=== PATIENT | male | born 1940 | race Caucasian/White ===

== ENCOUNTER 2018-09-15 02:18 | Outpatient (CLI) | payer OTHER, SELFPAY ==
[2018-09-15 11:03] LABS: Anion Gap 5.2 mmol/L (3-11); BUN 14 mg/dL (7-18); CO2 28.8 mmol/L (21.0-32.0); CREATININE 0.67 mg/dL (0.70-1.30); Calcium 8.7 mg/dL (8.5-10.1); Chloride 103 mmol/L (98-107); Glucose 112 mg/dL (70-100); Potassium 4.8 mmol/L (3.5-5.1); Sodium 137 mmol/L (136-145)
== END 2018-09-15 02:38 ==
LOC: LBO 02:18 → LOS 08:42
PROVIDERS: PCP Family Medicine; Visit Provider Family Medicine
DX: R73.03 Prediabetes (principal)
CPT/HCPCS: 36415; 80048

== ENCOUNTER 2018-09-30 01:40 | Outpatient (CLI) | payer OTHER, SELFPAY ==
--- NOTE | 2018-09-30 07:30 | MERGE_ITS ---
*[facility]* *[facility]* [address] [place] [address] Date of study: 09/30/2018 Transthoracic Echocardiography M-mode, complete 2D, complete spectral Doppler, and color Doppler *STUDY CONCLUSIONS* Summary: 1. Left ventricle: The cavity size was normal. Wall thickness was increased in a pattern of moderate LVH. Systolic function was hyperdynamic. The estimated ejection fraction was 65-70%. Findings consistent with diastolic dysfunction. Doppler parameters are consistent with high ventricular filling pressure. 2. Aortic valve: There was severe stenosis. There was mild regurgitation. Peak velocity (S): 4.2m/sec. Mean gradient (S): 42.2mm Hg. VTI ratio of LVOT to aortic valve: 0.3. Valve area (VTI): 1cm^2. 3. Mitral valve: There was mild to moderate regurgitation. Pressure half-time: 88ms. Valve area by pressure half-time: 2.5cm^2. 4. Left atrium: The atrium was moderately dilated. 5. Right ventricle: The cavity size was mildly dilated. Systolic function was normal. 6. Right atrium: The atrium was moderately dilated. 7. Atrial septum: No defect or patent foramen ovale was identified. 8. Tricuspid valve: There was moderate regurgitation. 9. Pulmonary arteries: Pulmonary systolic pressure was in the range of 40mm Hg to 50mm Hg. 10. Inferior vena cava: The vessel was patent and normal in size. The respirophasic diameter changes were in the normal range (greater than or equal to 50%), consistent with normal central venous pressure. *PATIENT PRESENTATION* Height: 180.3cm ((71in) ) S/D Pressure: 135 / 74 Weight: 75.8kg ((166.7lb) ) BSA: 1.95m^2 Test start time: 07:35 AM. Test stop time: 08:50 AM. PERFORMING Unknown ORDERING Kwesi Lopez REFERRING Kwesi Lopez PERFORMING [facility] [employer] Dedra Hoppe, RT (R)(CT), [facility] *PROCEDURE DATA* Procedure information: The patient was identified by two identifiers. This study was interpreted by [facility]. Pertinent images and digital data are archived for permanent storage and are available for subsequent review. No prior study was available for comparison. Study status: Routine. Transthoracic echocardiography. M-mode, complete 2D, complete spectral Doppler, and color Doppler. A Transthoracic Echocardiogram was performed. Scanning was performed from the parasternal, apical, subcostal, and suprasternal notch acoustic windows. Images were obtained using an [id number] cardiac ultrasound machine. Image quality was fair. Study completion: The patient tolerated the procedure well. History: PMH: Systolic ejection murmur. Had echo years ago at [facility]. R01.1. *CARDIAC ANATOMY* Left ventricle: The cavity size was normal. Wall thickness was increased in a pattern of moderate LVH. Systolic function was hyperdynamic. The estimated ejection fraction was 65-70%. The tissue Doppler parameters were abnormal. Findings consistent with diastolic dysfunction. Doppler parameters are consistent with high ventricular filling pressure. Aortic valve: Trileaflet; moderately thickened, moderately calcified leaflets. Doppler: There was severe stenosis. There was mild regurgitation. VTI ratio of LVOT to aortic valve: 0.3. Valve area (VTI): 1cm^2. Indexed valve area (VTI): 0.5cm^2/m^2. Peak velocity ratio of LVOT to aortic valve: 0.27. Valve area (Vmax): 0.9cm^2. Indexed valve area (Vmax): 0.5cm^2/m^2. Mean velocity ratio of LVOT to aortic valve: 0.28. Valve area (Vmean): 1cm^2. Indexed valve area (Vmean): 0.5cm^2/m^2. Mean gradient (S): 42.2mm Hg. Peak gradient (S): 71.3mm Hg. Aorta: Aortic root: The aortic root was normal in size. Ascending aorta: The ascending aorta was moderately dilated. Mitral valve: Moderately thickened leaflets anterior and posterior. Doppler: There was no evidence for stenosis. There was mild to moderate regurgitation. Valve area by pressure half-time: 2.5cm^2. Indexed valve area by pressure half-time: 1.3cm^2/m^2. Peak gradient (D): 4.7mm Hg. Left atrium: The atrium was moderately dilated. Atrial septum: No defect or patent foramen ovale was identified. Right ventricle: The cavity size was mildly dilated. Systolic function was normal. Pulmonic valve: Doppler: There was no evidence for stenosis. There was mild to moderate regurgitation. Peak gradient (S): 4.4mm Hg. Tricuspid valve: Doppler: There was moderate regurgitation. Pulmonary artery: Poorly visualized. Pulmonary systolic pressure was in the range of 40mm Hg to 50mm Hg. Right atrium: The atrium was moderately dilated. Pericardium: There was no pericardial effusion. Systemic veins: Inferior vena cava: Well visualized. The vessel was patent and normal in size. The respirophasic diameter changes were in the normal range (greater than or equal to 50%), consistent with normal central venous pressure. Baseline ECG: Bradycardia. Measurements Left ventricle Value Reference LV ID, ED, PLAX 4.8 cm 3.5 - 6.0 LV ID, ES, PLAX 3.0 cm 2.1 - 4.0 LV PW thickness, ED, PLAX 1.3 cm LV end-diastolic volume, 1-p A2C 81 ml LV ejection fraction, 1-p A2C 59 % LV end-diastolic volume, 1-p A4C 115 ml LV ejection fraction, 1-p A4C 64 % LV e', lateral 0.038 m/sec LV E/e', lateral 29 LV e', medial 0.038 m/sec LV E/e', medial 29 LV e', average 0.038 m/sec LV E/e', average 29 Ventricular septum Value Reference IVS thickness, ED, PLAX 1.3 cm LVOT Value Reference LVOT ID, A-P 2.1 cm LVOT area 3.4 cm^2 LVOT peak velocity, S 1.12 m/sec LVOT mean velocity, S 0.88 m/sec LVOT VTI, S 29.4 cm LVOT peak gradient, S 5 mm Hg LVOT mean gradient, S 3.3 mm Hg Stroke volume (SV), LVOT DP 100 ml Stroke index (SV/bsa), LVOT DP 51 ml/m^2 Aortic valve Value Reference Aortic valve peak velocity, S 4.2 m/sec Aortic valve mean velocity, S 3.12 m/sec Aortic valve VTI, S 99.0 cm Aortic mean gradient, S 42.2 mm Hg Aortic peak gradient, S 71.3 mm Hg VTI ratio, LVOT/AV 0.3 Aortic valve area, VTI 1 cm^2 Velocity ratio, peak, LVOT/AV 0.27 Aortic valve area, peak velocity 0.9 cm^2 Velocity ratio, mean, LVOT/AV 0.28 Aortic valve area, mean velocity 1 cm^2 Aortic valve area/bsa, mean velocity 0.5 cm^2/m^2 Aorta Value Reference Aortic root ID, ED 3.9 cm Ascending aorta ID, A-P, S 4.1 cm Left atrium Value Reference LA ID, A-P, ES 5.6 cm LA ID/bsa, A-P (H) 2.8 cm/m^2 <=2.2 LA area, ES, A4C (H) 27.7 cm^2 8.8 - 23.4 LA area, ES, A2C 26 cm^2 LA volume/bsa, ES, 1-p A4C 51 ml/m^2 LA volume, ES, 2-p 95 ml LA volume/bsa, ES, 2-p 48 ml/m^2 LA/aortic root ratio 1.41 Mitral valve Value Reference Mitral E-wave peak velocity 1.08 m/sec Mitral A-wave peak velocity 1.4 m/sec Mitral deceleration time (H) 305 ms 150 - 230 Mitral pressure half-time 88 ms Mitral peak gradient, D 4.7 mm Hg Mitral E/A ratio, peak 0.77 Mitral valve area, PHT, DP 2.5 cm^2 Mitral peak LV-LA gradient, S 144.6 mm Hg Mitral maximal regurg velocity, PISA 6.01 m/sec Mitral regurg VTI, PISA 225.3 cm Pulmonary veins Value Reference Pulmonary vein peak velocity, S 0.38 m/sec Pulmonary vein peak velocity, D 0.45 m/sec Pulmonary vein velocity ratio, peak, 0.84 S/D Tricuspid valve Value Reference Tricuspid regurg peak velocity 3.2 m/sec Tricuspid peak RV-RA gradient 40.4 mm Hg Right atrium Value Reference RA area, ES, A4C (H) 25.5 cm^2 8.3 - 19.5 Pulmonic valve Value Reference Pulmonic peak gradient, S 4.4 mm Hg Legend: (L) and (H) fabiano values outside specified reference range. I have personally reviewed the images and have reviewed and edited the reported findings. Electronically signed by Danny Myles MD 09/30/2018 18:31
== END 2018-09-30 02:00 ==
PROVIDERS: PCP Family Medicine; Visit Provider Family Medicine
DX: R01.1 Cardiac murmur, unspecified (principal); I50.1 Left ventricular failure, unspecified; I08.3 Combined rheumatic disorders of mitral, aortic and tricuspid valves
CPT/HCPCS: 93306

== ENCOUNTER → 2018-10-13 10:16 | Outpatient (BNVA) | payer OTHER, SELFPAY | PROVIDERS: PCP Family Medicine; Visit Provider Student in an Organized Health Care Education/Training Program | DX: I35.0 Nonrheumatic aortic (valve) stenosis (principal) | CPT/HCPCS: 99204; 99214 ==

== ENCOUNTER → 2019-01-19 10:56 | Outpatient (BNVA) | payer OTHER, MEDICARE, SELFPAY | PROVIDERS: PCP Family Medicine; Visit Provider Student in an Organized Health Care Education/Training Program | DX: I35.0 Nonrheumatic aortic (valve) stenosis (principal) | CPT/HCPCS: 99214 ==

== ENCOUNTER 2019-07-13 13:15 | Emergency (ER) | payer OTHER, SELFPAY ==
[2019-07-13 13:27] VITALS: BP 140/82; PULSE 72; RESP 16; TEMP 36.6; O2SAT 97
--- NOTE | 2019-07-13 14:00 | DI.CT_ITS ---
EXAM: CT HEAD WO CLINICAL HISTORY: Fall, struck his head. TECHNIQUE: Imaging Protocol: Axial computed tomography images with coronal and sagittal reformatted images were created and reviewed COMPARISON: HEAD AND CSPINE W/O CONTRAST from 05/05/2011 HEAD AND CSPINE W/O CONTRAST from 05/05/2011 FINDINGS: Ventricles and Extra axial spaces: Normal in size and morphology for the patient's age. Hemorrhage: None. Cerebral parenchyma: Mild atrophy. Midline shift: None. Brainstem/Cerebellum: Normal. Calvarium: Normal. Visualized Paranasal sinuses/Mastoids: Clear. Soft Tisues: Unremarkable. IMPRESSION: No acute abnormality. RADIATION DOSE DELIVERED: DATA REPOSITORY: All CT scans at this facility are submitted to the National Radiology Data Registry (NRDR) Dose Index Registry (DIR) with the [employer] (ACR). RADIATION OPTIMIZATION: All CT scans at this facility use at least one of these dose optimization te chniques: automated exposure control; mA and/or kV adjustment per patient size (includes targeted exa ms where dose is matched to clinical indication); or iterative reconstruction.
[2019-07-13] MEDS: Tetanus & Diphtheria Tox,ADULT 0.5 ML VIAL IM (14:58)
--- NOTE | 2019-07-13 15:40 | W.ED.GENAD ---
Discharge Plan Disposition Patient Disposition: HOME Condition: Stable Discharge Details Chief Complaint: Laceration Clinical Impression: Laceration of scalp Primary Care Provider: Kwesi Lopez ED Provider: Derek Vaca Home Meds and New Rx's Prescriptions: No Action Imodium Multi-Symptom Relief 1 EACH tablet 2 tab PO DAILY RF: 0 Discharge Instructions Instructions: Laceration (ED) Additional Instructions: Keep the area clean and dry. [place] should be removed in 5 days. Please watch for new or worsening symptoms and return to the ER for any concerns Discharge Data Discharge Date/Time-TO BE ENTERED AT DEPARTURE: 07/13/19 15:56 Medical Decision Making 78-year-old gentleman who was working on a trailer, it slipped and he fell striking his head. He is not anticoagulated he denies a global headache. There is no distracting injuries. Will obtain head CT given mechanism and his age. Although given his examination low suspicion for intracranial process. There is no C-spine discomfort, no clear indication for imaging. Will update tetanus, clean and repair the laceration. CT negative. Discussed this with patient and family. He remains neurologically intact. Tetanus updated Patient tolerated approximation of laceration well. Patient with no additional questions or concerns, comfortable with discharge Imaging Data Radiologic Study: Attestation: I personally reviewed and interpreted this imaging study as follows: Imaging: CT Scan Radiologist's impression: Negative per radiology HPI General Mode of arrival: ambulatory. Date/Time Provider Initiated Documentation: 07/13/19 13:16. Limitations to Documentation: no limitations. Information obtained by: patient. HPI Narrative: This is a 78-year-old gentleman with a history of aortic stenosis, prediabetes, migraines, ulcerative colitis, not anticoagulated who reports that about 30 minutes prior to arrival he was hooking up a trailer, the trailer slipped, he fell striking the back of his head on a piece of metal. He denies any loss of consciousness, headache, neck pain, visual changes, chest pain, shortness of breath, nausea, vomiting, incontinence, numbness, tingling, weakness or any other injury. His tetanus status is not up-to-date. Patient significant other reports that she was unable to get the bleeding to stop, felt as though it was rather deep so decided to come to the ER for further evaluation. Patient reports pain 1 out of 10 locally at the laceration. Related Data Home Medications Medication Instructions Recorded Confirmed loperamide-simethicone [Imodium 2 tab PO DAILY 06/07/15 07/13/19 Multi-Symptom Rel Cplt] Allergies Allergy/AdvReac Type Severity Reaction Status Date / Time aspirin Allergy Unknown Unverified 07/13/19 13:34 Sulfa (Sulfonamide AdvReac Intermediate NAUSEA/VOMI Unverified 07/13/19 13:34 Antibiotics) TING Salicylates * AdvReac Mild GI UPSET Unverified 07/13/19 13:34 [Salicylates *RETIRED-10/29/15] General Stated Complaint: Laceration KAYLI: 4 Review of Systems Constitutional Constitutional: Denies headache(s) and Denies weakness Eyes Eyes: Denies change in vision ENT Ears, Nose, Mouth, and Throat: Denies headache(s) and Denies neck pain Cardiovascular Cardiovascular: Denies chest pain and Denies dyspnea Respiratory Respiratory: Denies dyspnea Gastrointestinal Gastrointestinal: Denies abdominal pain, Denies nausea and Denies vomiting Musculoskeletal Musculoskeletal: Denies back pain, Denies neck pain, Denies numbness and Denies tingling Integumentary/Breasts Skin/Breast: Denies rash Neurologic Neurologic: Denies headache(s), Denies numbness, Denies tingling and Denies weakness Hematologic/Lymphatic Hematologic/Lymphatic: Denies easy bruising [facility] Medical History Aortic stenosis (Chronic) Disease of pericardium (Resolved 03/29/07) Unspecified disease of pericardium (Resolved 03/29/07) Surgical History Colonoscopy - MAC (03/26/16) Family History Mother Cancer Father No problems noted. Sister No problems noted. Brother Cancer Sister No problems noted. Sister No problems noted. Brother No problems noted. Brother No problems noted. Son No problems noted. Daughter Diabetes Social History Smoking/Tobacco Use Status: Never Second Hand Exposure: Yes Alcohol Intake: never Drug use: Never Substance use type: does not use Caregiver/Support person: No Household members: spouse Housing: house Communication Needs: None Do you need help understanding health information?: Never Pets and animals: No Sexually active: No Do you think of yourself as: straight/heterosexual Current gender identity: male What is your relationship status?: How often do you talk on the phone with friends or family?: three or more times per week How often do you get together with friends or relatives?: three or more times per week How often do you attend rastafari or methodist services?: decline to answer Do you belong to any clubs or organized social groups?: no Panel score (0-1 are the most socially isolated patients): 2 What type of physical activity do you participate in: other Details: Physical work Mary Beth/Mormon: Yarsanism Special mary beth needs: No Seatbelt use: always Helmet use: No Drive intox or ride w/intox team driver: No Do you feel safe at home: Yes Do you feel safe in your relationship?: Yes Exam Const General: cooperative, healthy appearing, comfortable and no acute distress Orientation: alert, awake and oriented x3 HENMT Head: no palpable skull fracture, normocephalic and laceration (Occiput, 3 cm, no active bleeding. No foreign body. Minimal tenderness) Ears: hearing grossly normal bilaterally, TM's normal bilaterally, TM normal on the right and EAC's normal General nose exam: external nose normal Face and sinus: normal facial exam Mouth: oral mucosae normal and moist mucous membranes Eyes General: appearance normal, both eyes and all related structures Alignment and Position: alignment normal Periorbital: periorbital findings normal Eyelids: eyelids normal Conjunctivae: conjunctivae normal Sclera: sclerae normal Cornea: corneas normal Pupils: PERRL EOM: EOM intact bilaterally Direct ophthalmoscopy: normal light reflex Neck Neck: normal visual inspection, full ROM, trachea midline and supple Resp Effort & Inspection: normal respiratory effort and able to speak in complete sentences Auscultation: clear to auscultation bilaterally Cardio Rate: regular rate Rhythm: regular rhythm Back/Spine/Pelvis Back: No back tenderness Cervical Spine: cervical ROM normal and No cervical spinal tenderness Skin General skin exam: no rashes or lesions noted Neuro General: patient alert, patient awake, patient oriented x3, moves all extremities and no focal motor deficits Cranial Nerves: CN's II-XI intact bilaterally Cognition: normal cognition Speech: speech normal Gait: normal gait Motor: muscle tone normal throughout and strength 5/5 throughout Sensory Exam: no sensory deficits noted Extrem General: normal to inspection and full ROM Psych Appearance: grossly normal Mental Status: mental status grossly normal Course Vital Signs Vital signs: Vital Signs Temperature 36.6 C 07/13/19 13:27 Pulse 72 07/13/19 13:27 Respiratory Rate 16 07/13/19 13:27 Blood Pressure 140/82 07/13/19 13:27 Pulse Oximetry 97 07/13/19 13:27 Temperature 36.6 C 07/13/19 13:27 Temperature Source Temporal Artery Scan 07/13/19 13:27 Pulse 72 07/13/19 13:27 Respiratory Rate 16 07/13/19 13:27 Respiratory Effort Non-Labored 07/13/19 13:32 Blood Pressure 140/82 07/13/19 13:27 Blood Pressure Position Supine 07/13/19 13:27 Pulse Oximetry 97 07/13/19 13:27 Oxygen Delivery Method Room Air 07/13/19 13:27 Oxygen Flow Rate 0 07/13/19 13:27 Pain Level 1 07/13/19 13:27 Procedures Laceration Laceration 1: Site: scalp Size (cm): 3 Description: linear Depth: simple, single layer Pre-repair: wound explored, irrigated extensively and deep structures intact Skin layer closed with: other (Margarita x6)
== END 2019-07-13 15:56 | disposition home or self-care (01) ==
PROVIDERS: Emergency Provider Physician Assistant; PCP Family Medicine
DX: S01.01XA Laceration without foreign body of scalp, initial encounter (principal); W01.198A Fall on same level from slipping, tripping and stumbling with subsequent striking against other object, initial encounter
CPT/HCPCS: 12002; 90471; 99284; 70450; 99281

== ENCOUNTER 2019-07-18 09:07 | Emergency (ER) | payer OTHER, SELFPAY ==
[2019-07-18 09:12] VITALS: BP 131/73; PULSE 74; RESP 16; TEMP 36.5; O2SAT 95
--- NOTE | 2019-07-18 09:20 | W.ED.GENAD ---
Discharge Plan Disposition Patient Disposition: HOME Condition: Stable Discharge Details Chief Complaint: SutureRem Clinical Impression: Encounter for removal of patel Primary Care Provider: Kwesi Lopez ED Provider: Derek Vaca Home Meds and New Rx's Prescriptions: No Action Imodium Multi-Symptom Relief 1 EACH tablet 2 tab PO DAILY RF: 0 Discharge Instructions Additional Instructions: [place] removed without difficulty. Remember to be gentle with that area as the laceration is still not yet completely healed. Please watch for new or worsening symptoms and return to the ER for any concerns Medical Decision Making 78-year-old gentleman presents for staple removal. He is currently asymptomatic. No signs of infection and no wound appears well approximated. I was able to easily remove 7 patel without difficulty. Patient tolerated well. Medical Records Medical records reviewed: Yes I reviewed the patient's medical records. HPI General Mode of arrival: ambulatory. Date/Time Provider Initiated Documentation: 07/18/19 09:07. Limitations to Documentation: no limitations. Information obtained by: patient. HPI Narrative: 78-year-old gentleman seen in the ER on the , actually by me, presents to have patel removed from his scalp. He denies any headache, pain at the site of the laceration, or fevers. No drainage. He has no acute concerns or complaints. Related Data Home Medications Medication Instructions Recorded Confirmed loperamide-simethicone [Imodium 2 tab PO DAILY 06/07/15 07/18/19 Multi-Symptom Rel Cplt] Allergies Allergy/AdvReac Type Severity Reaction Status Date / Time aspirin Allergy Unknown Unverified 07/18/19 09:14 Sulfa (Sulfonamide AdvReac Intermediate NAUSEA/VOMI Unverified 07/18/19 09:14 Antibiotics) TING Salicylates * AdvReac Mild GI UPSET Unverified 07/18/19 09:14 [Salicylates *RETIRED-10/29/15] General Stated Complaint: SutureRem KAYLI: 5 Review of Systems Constitutional Constitutional: Denies fever(s) and Denies headache(s) Eyes Eyes: Denies change in vision ENT Ears, Nose, Mouth, and Throat: Denies headache(s) Gastrointestinal Gastrointestinal: Denies nausea Integumentary/Breasts Skin/Breast: Denies rash Neurologic Neurologic: Denies headache(s) COUNTS INCLUDE [facility] BEDS AT THE [facility] Medical History Aortic stenosis (Chronic) Disease of pericardium (Resolved 03/29/07) Unspecified disease of pericardium (Resolved 03/29/07) Surgical History Colonoscopy - MAC (03/26/16) Family History Mother Cancer Father No problems noted. Sister No problems noted. Brother Cancer Sister No problems noted. Sister No problems noted. Brother No problems noted. Brother No problems noted. Son No problems noted. Daughter Diabetes Social History Smoking/Tobacco Use Status: Never Second Hand Exposure: Yes Alcohol Intake: never Drug use: Never Substance use type: does not use Caregiver/Support person: No Household members: spouse Housing: house Communication Needs: None Do you need help understanding health information?: Never Pets and animals: No Sexually active: No Do you think of yourself as: straight/heterosexual Current gender identity: male What is your relationship status?: How often do you talk on the phone with friends or family?: three or more times per week How often do you get together with friends or relatives?: three or more times per week How often do you attend rastafarian or methodist services?: decline to answer Do you belong to any clubs or organized social groups?: no Panel score (0-1 are the most socially isolated patients): 2 What type of physical activity do you participate in: other Details: Physical work Mary Beth/Scientology: Confucianism Special mary beth needs: No Seatbelt use: always Helmet use: No Drive intox or ride w/intox commercial front load driver: No Do you feel safe at home: Yes Do you feel safe in your relationship?: Yes Exam Const General: cooperative, healthy appearing, comfortable and no acute distress Orientation: alert and awake [facility] Head: normal to inspection, no palpable skull fracture, normocephalic, atraumatic and laceration (Well approximated occiput laceration with 7 patel. No signs of infection) Mouth: moist mucous membranes Eyes Conjunctivae: conjunctivae normal Neck Neck: normal visual inspection, trachea midline and supple Resp Effort & Inspection: normal respiratory effort and able to speak in complete sentences Cardio Rate: regular rate Rhythm: regular rhythm Skin General skin exam: no rashes or lesions noted Neuro General: patient alert, patient awake, moves all extremities and no focal motor deficits Sensory Exam: no sensory deficits noted Psych Appearance: grossly normal Mental Status: mental status grossly normal Course Vital Signs Vital signs: Vital Signs Temperature 36.5 C 07/18/19 09:12 Pulse 74 07/18/19 09:12 Respiratory Rate 16 07/18/19 09:12 Blood Pressure 131/73 07/18/19 09:12 Pulse Oximetry 95 07/18/19 09:12 Temperature 36.5 C 07/18/19 09:12 Temperature Source Skin 07/18/19 09:12 Pulse 74 07/18/19 09:12 Respiratory Rate 16 07/18/19 09:12 Respiratory Effort Non-Labored 07/18/19 09:12 Blood Pressure 131/73 07/18/19 09:12 Blood Pressure Position Sitting 07/18/19 09:12 Pulse Oximetry 95 07/18/19 09:12 Oxygen Delivery Method Room Air 07/18/19 09:12 Oxygen Flow Rate 0 07/18/19 09:12 Pain Level 3 07/18/19 09:12 Comment 07/18/19 09:12
== END 2019-07-18 09:28 | disposition home or self-care (01) ==
LOC: ER 17:33
PROVIDERS: Emergency Provider Physician Assistant; PCP Family Medicine
DX: S01.01XD Laceration without foreign body of scalp, subsequent encounter (principal); W01.198D Fall on same level from slipping, tripping and stumbling with subsequent striking against other object, subsequent encounter; Z48.02 Encounter for removal of sutures

== ENCOUNTER 2020-06-04 10:05 | Day surgery (SDC) | payer MEDICARE, SELFPAY ==
[2020-06-04 10:36] VITALS: BP 145/80; PULSE 71; RESP 18; TEMP 36.5; O2SAT 98
[2020-06-04] MEDS: Tropicam./Phenyleph. (1/2.5%) 5 ML BTL OS ×3 (10:59→11:09)
[2020-06-04] MEDS: Balanced Salt Soln.-PLUS 500 ML BAG (12:00)
[2020-06-04] MEDS: Lidocaine 2% Jelly 6 ML SYR (12:01)
[2020-06-04] MEDS: Lidocaine 1% Pres-Free 5 ML VIAL (12:01)
[2020-06-04] MEDS: Duovisc Viscoelastic System EACH 1 EACH (12:01)
[2020-06-04] MEDS: Tetracaine 0.5% 4 ML BTL OS (12:03)
[2020-06-04] MEDS: Povidone-Iodine Ophth 30 ML BTL (12:03)
[2020-06-04] MEDS: Trypan Blue 0.06% 0.5 ML SYR (12:04)
--- NOTE | 2020-06-04 12:28 | W.PM.DSUDISC ---
Discharge Plan Disposition Patient Disposition: HOME Condition: Good Discharge Details Attending Provider: Dilan Morrissey Primary Care Provider: Nataly Espinosa Home Meds and New Rx's Prescriptions: No Action Imodium Multi-Symptom Relief 1 EACH tablet 2 tab PO DAILY RF: 0 Vitamin C 1,000 mg Tablet Extended Release 1,000 mg PO DAILY RF: 0 ginkgo biloba [Ginkoba] 40 mg Tablet 120 mg PO DAILY RF: 0 Discharge Instructions Stand Alone Forms: Post-op Topical Cataract Discharge Orders Discharge Orders: Discharge Order (Routine); Ordered 06/04/20 Ordered By: Dilan Morrissey DS: Diagnosis Discharge Diagnosis (1) Nuclear sclerotic cataract of left eye: Status: Resolved (2) Posterior subcapsular age-related cataract of left eye: Status: Resolved
--- NOTE | 2020-06-04 12:28 | W.PM.OP ---
Date of service: 06/04/20 Time of Service: 12:29 Operative Note Operative Note DATE OF PROCEDURE: 06/04/20 PRE-OP DIAGNOSIS: Nuclear/posterior cataract, left eye Poorly dilating pupil, left eye Poor red reflex, left eye PROCEDURE: Cataract extraction using phacoemulsification with intraocular lens implant, left eye, with pupillary dilation using Malyugin Ring and capsular staining using Vision Blue SURGEON: Dilan Morrissey ANESTHESIA: MAC (with sub-tenon's local infiltration) ESTIMATED BLOOD LOSS: 0 PATHOLOGY: none sent COMPLICATIONS: None Patient was transported to: same day Patient's condition: stable Implants: Anthony and Anthony / [employer] Tecnis [id number] Indications: Progressive decreased vision due to cataract, left eye Procedure Description: CATARACT SURGERY OPERATIVE REPORT PREOPERATIVE DIAGNOSIS: 1. Nuclear/posterior subcapsular cataract, left eye 2. Poorly dilating pupil, left eye 3. Poor red reflex, left eye POSTOPERATIVE DIAGNOSIS: Same OPERATION: 1. Cataract extraction using phacoemulsification with posterior chamber intraocular lens implant, left eye. 2. Pupillary dilation and iris stabilization using Malyugin Ring 3. Capsular staining with VIsion Blue IOL: IOL Cut Out Stitcher/Model: Anthony & Anthony / HALLIE Tecnis ZCB00 IOL Power: + 21.5 diopters IOL Serial Number: [id number] Optic Diameter: 6.0mm Haptic/Overall Diameter: 13.0mm PHACO INFO: Justin Centurion Vision System with OZil and Active Fluidics Cumulative Dispersed Energy (CDE): 13.49 seconds SURGEON: Dilan Morrissey MD, SOCO ANESTHESIA: Monitored Anesthesia Care (MAC), with local sub-tenon's anesthetic infiltration COMPLICATIONS: None SPECIMENS: None INDICATIONS FOR PROCEDURE: The patient is a 79-year-old gentleman with history of diminished visual acuity in the left eye. He is noted to have a dense posterior subcapsular cataract with visual acuity of 24. The option of cataract surgery was offered to the patient and he wished to proceed. PROCEDURE: The correct surgical eye was identified and marked as the left eye and the pupil was dilated in the preoperative area using mydriatics, cycloplegics, and NSAIDS (except in aspirin allergic patients). The dilated pupil size was 4.5 mm. No oral sedation was given.. The patient was brought to the operating room where cardiopulmonary monitoring was instituted and surgical time-out was performed, confirming the correct operative eye and IOL power. Topical anesthesia was administered and ophthalmic povidone-iodine 5% was instilled into the conjunctival fornices. Lidocaine gel was applied to the cornea and the william-ocular area was prepped with Betadine 10% solution and draped in the usual sterile fashion for intraocular surgery, including an aperture drape. A Tegaderm transparent film dressing was cut in half and used to cover the lashes and lid margins. Care was taken to sequester the lashes and lid margins under the Tegaderm dressing. A lid speculum was placed between the lids of the operative eye and the Kalani-Shira operating microscope was maneuvered into position. Shima scissors were then used to make a conjunctival buttonhole approximately 6mm posterior to the limbus in the inferonasal quadrant. Blunt dissection was carried out to expose bare sclera, and a blunt-tipped sub-tenon?s anesthesia cannula was introduced and passed posteriorly along the globe where non-preserved plain lidocaine was injected into posterior sub-Tenon?s space. A sideport knife was used to make a paracentesis port superiorly/superiortemporally. Intraocular phenylephrine/lidocaine was injected into the anterior chamber. Air was then injected into anterior chamber, followed by Vision Blue, which was painted over the anterior capsule and then irrigated out with BSS. The anterior chamber was then filled with viscoelastic. A 2.4mm keratome knife was used to create a half-thickness groove at the limbus and then to construct a three-plane near-clear corneal tunnel extending 2.0mm into clear cornea temporally. A 7.0 mm Malyugin Ring was then inserted into the pupillary space and engaged with the Kuglen hook. A flap was raised on the anterior capsule and capsulorhexis forceps were used to complete a continuous curvilinear capsulorhexis of 5.0 mm. Balanced salt solution was then used to perform cortical cleaving hydrodissection and nuclear hydrodelineation until the lens could be freely rotated within the capsular bag. The lens nucleus was then disassembled and removed within the capsular bag and iris plane using phacoemulsification. Residual cortical material was removed using the 45-degree angled silicone I/A tip with 0.3mm port. The posterior capsule was carefully polished to remove as much residual lens epithelial cells as safely possible. There was some residual posterior subcapsular plaque, mostly inferior temporally, which could not be safe. The capsular bag was then inflated and the anterior chamber deepened with viscoelastic. The lens implant described above was inserted into the capsular bag using the HALLIE [place] Injector. A Kuglen hook was used to dial the IOL into position. The Malyugin Ring was removed in the reverse order of its insertion. Residual viscoelastic was then removed first from posterior to the IOL, then from the anterior chamber using the I/A handpiece. The lens implant was noted to center nicely within the capsular bag. The incisions were stromally hydrated, and the anterior chamber was reformed using BSS. Then 0.5cc of moxifloxacin 1.0mg/ml were injected into the capsular bag and anterior chamber. The incisions were checked with a Weck spear and found to be secure. Several drops of ophthalmic povidone-iodine 5% were then applied to the eye followed by two drops of Imprimis combination prednisolone/moxifloxacin/nepafenac solution. The drapes were removed and a clear plastic protective eye shield was placed over the eye. The patient was then returned to Same Day Surgery in stable condition.
== END 2020-06-04 12:45 | disposition home or self-care (01) ==
PROVIDERS: PCP Nurse Practitioner; Visit Provider Ophthalmology
PROC: (CPT 66982; principal; 2020-06-04 13:30)
DX: H25.12 Age-related nuclear cataract, left eye (principal); H25.042 Posterior subcapsular polar age-related cataract, left eye; H57.09 Other anomalies of pupillary function; H35.89 Other specified retinal disorders
CPT/HCPCS: 66982; V2632

== ENCOUNTER 2020-06-18 07:22 | Day surgery (SDC) | payer MEDICARE, SELFPAY ==
[2020-06-18 07:30] VITALS: BP 141/91; PULSE 73; RESP 18; TEMP 36.2; O2SAT 97
[2020-06-18] MEDS: Tropicam./Phenyleph. (1/2.5%) 5 ML BTL OD ×3 (07:48→08:02)
[2020-06-18] MEDS: Tetracaine 0.5% 4 ML BTL OD (08:56)
[2020-06-18] MEDS: Lidocaine 2% Jelly 6 ML SYR (08:57)
[2020-06-18] MEDS: Povidone-Iodine Ophth 30 ML BTL (08:57)
[2020-06-18] MEDS: Lidocaine 1% Pres-Free 5 ML VIAL (09:04)
[2020-06-18] MEDS: Balanced Salt Soln.-PLUS 500 ML BAG (09:06)
[2020-06-18] MEDS: Duovisc Viscoelastic System EACH 1 EACH (09:07)
--- NOTE | 2020-06-18 09:26 | W.PM.DSUDISC ---
Discharge Plan Disposition Patient Disposition: HOME Condition: Good Discharge Details Attending Provider: Dilan Morrissey Primary Care Provider: Nataly Espinosa Home Meds and New Rx's Prescriptions: No Action Imodium Multi-Symptom Relief 1 EACH tablet 2 tab PO DAILY RF: 0 Vitamin C 1,000 mg Tablet Extended Release 1,000 mg PO DAILY RF: 0 ginkgo biloba [Ginkoba] 40 mg Tablet 120 mg PO DAILY RF: 0 Discharge Instructions Stand Alone Forms: Post-op Topical Cataract, Basia Sawyer (DSU) Discharge Orders Discharge Orders: Discharge Order (Routine); Ordered 06/18/20 Ordered By: Dilan Morrissey DS: Diagnosis Discharge Diagnosis (1) Cortical cataract of right eye: Status: Resolved (2) Nuclear sclerotic cataract of right eye: Status: Resolved
--- NOTE | 2020-06-18 09:27 | W.PM.OP ---
Date of service: 06/18/20 Time of Service: 09:27 Operative Note Operative Note DATE OF PROCEDURE: 06/18/20 PRE-OP DIAGNOSIS: Nuclear/cortical cataract, right eye POST-OP DIAGNOSIS: same PROCEDURE: Cataract extraction using phacoemulsification with intraocular lens implant, right eye SURGEON: Dilan Morrissey Refer to Anesthesia Record ESTIMATED BLOOD LOSS: 0 PATHOLOGY: none sent COMPLICATIONS: None Patient was transported to: same day Patient's condition: stable Implants: Anthony and Anthony Vision / [employer] Optics Tecnis ZCB00 intraocular lens Indications: Progressive decreased vision due to cataract, right eye Procedure Description: CATARACT SURGERY OPERATIVE REPORT PREOPERATIVE DIAGNOSIS: Nuclear/cortical cataract, right eye POSTOPERATIVE DIAGNOSIS: Same OPERATION: Cataract extraction using phacoemulsification with posterior chamber intraocular lens implant, right eye. IOL: IOL Vice President Of Talent Acquisition/Model: J&J Vision / HALLIE Tecnis ZCB00 IOL Power: + 22.0 diopters IOL Serial Number: [id number] Optic Diameter: 6.0mm Haptic/Overall Diameter: 13.0mm PHACO INFO: Justin TabSysurion Vision System with OZil and Active Fluidics Cumulative Dispersed Energy (CDE): 11.65 seconds SURGEON: Dilan Morrissey MD, SOCO ANESTHESIA: Monitored Anesthesia Care (MAC), with local sub-tenon's anesthetic infiltration COMPLICATIONS: None SPECIMENS: None INDICATIONS FOR PROCEDURE: The patient is a 79-year-old gentleman with history of diminished visual acuity in both eyes secondary to the development of bilateral cataracts. He has already undergone cataract surgery in the left eye and is doing well postoperatively. He now presents for cataract surgery in the right eye. PROCEDURE: The correct surgical eye was identified and marked as the right eye and the pupil was dilated in the preoperative area using mydriatics and cycloplegics. The dilated pupil size was 6.0 mm. Oral sedation was administered in the form of an Imprimis MKO Melt (midazolam 3mg/ketamine 25mg/ondansetron 2mg). The patient was brought to the operating room where cardiopulmonary monitoring was instituted and surgical time-out was performed, confirming the correct operative eye and IOL power. Topical anesthesia was administered and ophthalmic povidone-iodine 5% was instilled into the conjunctival fornices. Lidocaine gel was applied to the cornea and the william-ocular area was prepped with Betadine 10% solution and draped in the usual sterile fashion for intraocular surgery, including an aperture drape. A Tegaderm transparent film dressing was cut in half and used to cover the lashes and lid margins. Care was taken to sequester the lashes and lid margins under the Tegaderm dressing. A lid speculum was placed between the lids of the operative eye and the Kalani-Shira operating microscope was maneuvered into position. Shima scissors were then used to make a conjunctival buttonhole approximately 6mm posterior to the limbus in the inferonasal quadrant. Blunt dissection was carried out to expose bare sclera, and a blunt-tipped sub-tenon?s anesthesia cannula was introduced and passed posteriorly along the globe where non-preserved plain lidocaine was injected into posterior sub-Tenon?s space. A sideport knife was used to make a paracentesis port inferiortemporally. Intraocular phenylephrine/lidocaine was injected into the anterior chamber. The anterior chamber was then filled with viscoelastic. A 2.4mm keratome knife was used to create a half-thickness groove at the limbus and then to construct a three-plane near-clear corneal tunnel extending 2.0mm into clear cornea in the superiortemporal position. . A flap was raised on the anterior capsule and capsulorhexis forceps were used to complete a continuous curvilinear capsulorhexis of 5.5 mm. Balanced salt solution was then used to perform cortical cleaving hydrodissection and nuclear hydrodelineation until the lens could be freely rotated within the capsular bag. The lens nucleus was then disassembled and removed within the capsular bag and iris plane using phacoemulsification. Residual cortical material was removed using the I/A handpiece. The posterior capsule was carefully polished to remove as much residual lens epithelial cells as safely possible. The capsular bag was then inflated and the anterior chamber deepened with viscoelastic. The lens implant described above was inserted into the capsular bag using the HALLIE [place] Injector. A Kuglen hook was used to dial the IOL into position. Residual viscoelastic was then removed first from posterior to the IOL, then from the anterior chamber using the I/A handpiece. The lens implant was noted to center nicely within the capsular bag. The incisions were stromally hydrated, and the anterior chamber was reformed using BSS. Then 0.5cc of moxifloxacin 1.0mg/ml were injected into the capsular bag and anterior chamber. The incisions were checked with a Weck spear and found to be secure. Several drops of ophthalmic povidone-iodine 5% were then applied to the eye followed by two drops of Imprimis combination prednisolone/moxifloxacin/nepafenac solution. The drapes were removed and a clear plastic protective eye shield was placed over the eye. The patient was then returned to Same Day Surgery in stable condition.
== END 2020-06-18 09:38 | disposition home or self-care (01) ==
PROVIDERS: PCP Nurse Practitioner; Visit Provider Ophthalmology
PROC: (CPT 66984; principal; 2020-06-18 09:30)
DX: H25.011 Cortical age-related cataract, right eye (principal); H25.11 Age-related nuclear cataract, right eye; Z96.1 Presence of intraocular lens; Z98.42 Cataract extraction status, left eye
CPT/HCPCS: 66984; V2632

== ENCOUNTER 2020-09-13 02:08 | Outpatient (CLI) | payer MEDICARE, SELFPAY ==
[2020-09-13 12:54] LABS: Calculated LDL 69 mg/dL (<100); Cholesterol 130 mg/dL (<200); HDL Cholesterol 43 mg/dL (40-60); Triglyceride 90 mg/dL (<150)
[2020-09-13 13:27] LABS: Hemoglobin A1C 6.3 % (<5.7)
== END 2020-09-13 02:09 | disposition home or self-care (01) ==
PROVIDERS: PCP Nurse Practitioner; Visit Provider Nurse Practitioner
DX: R73.03 Prediabetes (principal); I35.0 Nonrheumatic aortic (valve) stenosis
CPT/HCPCS: 36415; 80061; 83036

== ENCOUNTER 2023-12-16 03:16 | Outpatient (CLI) | payer MEDICARE, SELFPAY ==
[2023-12-16 12:33] LABS: Hemoglobin A1C 6.5 % (<5.7)
[2023-12-16 12:35] LABS: Anion Gap 4.4 mmol/L (3-11); BUN 20 mg/dL (7-18); CO2 30.6 mmol/L (21.0-32.0); CREATININE 0.9 mg/dL (0.70-1.30); Calcium 8.8 mg/dL (8.5-10.1); Chloride 104 mmol/L (98-107); Estimated GFR 85.27 (mL/min/1.73m2); Glucose 106 mg/dL (74-106); Potassium 3.9 mmol/L (3.5-5.1); Sodium 139 mmol/L (136-145)
== END 2023-12-16 03:17 | disposition home or self-care (01) ==
LOC: LOS 03:16
PROVIDERS: PCP Nurse Practitioner Family; Visit Provider Nurse Practitioner Family
DX: R73.03 Prediabetes (principal); K51.80 Other ulcerative colitis without complications; Z00.00 Encounter for general adult medical examination without abnormal findings
CPT/HCPCS: 36415; 80048; 83036

== ENCOUNTER 2024-10-19 21:47 | Emergency (ER) | payer MEDICARE, SELFPAY ==
[2024-10-19 21:49] VITALS: BP 149/114; PULSE 92; RESP 20; TEMP 36.4; O2SAT 94
[2024-10-19] MEDS: Ondansetron 4 MG/2 ML VIAL (21:57)
--- NOTE | 2024-10-19 22:11 | ED.GENADUL_ITS ---
Discharge Plan Disposition Patient Disposition: Home Discharge Details Clinical Impression: Acute anterior epistaxis Primary Care Provider: Rosita Rodriguez ED Provider: Yakelin Ball Home Meds and New Rx's Prescriptions: New cephalexin 500 mg capsule 500 mg PO BID 2 Days Qty: 4 0RF No Action triamcinolone acetonide 0.1 % cream 1 applic topical DAILY Qty: 80 0RF Rx Instructions: nightly for 2 weeks and then as needed mometasone 50 mcg/actuation spray,non-aerosol 2 spray intranasal DAILY Qty: 17 2RF Rx Instructions: administer into each nostril mupirocin 2 % ointment 1 applic topical TID Qty: 22 0RF loperamide-simethicone [Imodium Multi-Symptom Relief] 1 EACH tablet 2 tab PO DAILY Vitamin C 1,000 mg Tablet Extended Release 1,000 mg PO DAILY ginkgo biloba [Ginkoba] 40 mg Tablet 120 mg PO DAILY Discharge Instructions Instructions: Nosebleeds ED Additional Instructions: * A Rhino Rocket has been placed into the right nare. Please keep monitoring the balloon, it should be full like I demonstrated to you and if it needs to you can add a little bit of air using the syringe provided * Use the Afrin given to you 2 sprays in the left nostril twice daily for the next 3 days * Start the antibiotic prescribed twice daily for the next 3 days this is to prevent infection from developing since you are keeping the Rhino Rocket in place, * An urgent follow-up appointment has been sent to ENT clinic. Ideally they will see you in clinic on Thursday afternoon for removal of the Rhino Rocket. If for some reason you cannot be seen by ENT clinic, then return to the emergency department on Thursday and we can remove the Rhino Rocket here. * Return to the emergency department if you have excessive bleeding out of the left nostril, bleeding down the back of your throat or any issues with the Rhino Rocket. You can take Tylenol as needed for pain or apply ice pack to the nose to help with the pressure or discomfort HPI General Date/Time Provider Initiated Documentation: 10/19/24 21:58 . Limitations to Documentation: no limitations . Information obtained by: patient and EMS . HPI Narrative: 84-year-old gentleman with past medical history of aortic stenosis, presents via EMS for evaluation of nosebleed. He reports that symptoms started just prior to arrival, he reports that he was really hot in his house but otherwise denies prior nosebleeds or any trauma. States that he did not put anything in his nose. He reports significant amount of bleeding coming out of the right side of his nose with clots. EMS reports that they held pressure for quite some time and could not get it to stop, they held pressure during the entire transport. They used Afrin without any resolution. Patient denies any aspirin or other blood thinner use. Related Data Home Medications ?Medication ?Instructions ?Recorded ?Confirmed loperamide 2 mg-simethicone 125 mg 2 tab PO DAILY 02/08/1710/19/24 tablet (Imodium Multi-Symptom Relief) ascorbic acid (vitamin C) 1,000 mg 1,000 mg PO DAILY 0 06/01/20 10/19/24 tablet,extended release (Vitamin C ER) ginkgo biloba 40 mg tablet 120 mg PO DAILY 06/01/20 mupirocin 2 % topical ointment 1 applic topical TID #2 2 grams 11/19/20 10/19/24 mometasone 50 mcg/actuation nasal 2 spray intranasal D AILY #17 grams 04/28/23 10/19/24 spray triamcinolone acetonide 0.1 % 1 applic topical DAILY # 80 grams 04/28/23 10/19/24 topical cream cephalexin 500 mg capsule 500 mg PO BID 2 days #4 caps 10/19/24 Previous Rx's ?Medication ?Instructions ?Recorded mupirocin 2 % topical ointment 1 applic topical TID #2 2 grams 11/19/20 mometasone 50 mcg/actuation nasal 2 spray intranasal D AILY #17 grams 04/28/23 spray triamcinolone acetonide 0.1 % 1 applic topical DAILY # 80 grams 04/28/23 topical cream cephalexin 500 mg capsule 500 mg PO BID 2 days #4 caps 10/19/24 Allergies Allergy/AdvReac Type Severity Reaction Status Date / Time aspirin Allergy Unknown Unknown Verified 10/19/24 21:58 Sulfa (Sulfonamide AdvReac Intermediate NAUSEA/VOMI Verified 10/19/24 21:58 Antibiotics) TING Salicylates * (Salicylates AdvReac Mild GI UPSET Verified 10/19/24 21:58 *RETIRED-10/29/15) General Stated Complaint: Epistaxis KAYLI: 3 Exam Narrative Exam Narrative: Review of Systems: All systems reviewed & are unremarkable except as noted in HPI and below Well-developed, no acute distress NCAT PERRL, normal conjunctiva Bleeding from the right nare, unable to determine location of source, no active bleeding from the left nare No drainage of blood noted in the posterior oropharynx RRR Unlabored respiratory effort Course Vital Signs Vital signs: Vital Signs Temperature 36.4 C 10/19/24 21:49 Pulse 92 H 10/19/24 21:49 Respiratory Rate 20 10/19/24 21:49 Blood Pressure 149/114 H 10/19/24 21:49 Pulse Oximetry 94 10/19/24 21:49 Temperature 36.4 C 10/19/24 21:49 Temperature Source Temporal Artery Scan 10/19/24 21:49 Pulse 92 H 10/19/24 21:49 Respiratory Rate 20 10/19/24 21:49 Blood Pressure 149/114 H 10/19/24 21:49 Blood Pressure Position Sitting 10/19/24 21:49 Pulse Oximetry 94 10/19/24 21:49 Oxygen Delivery Method Room Air 10/19/24 21:49 Oxygen Flow Rate 0 10/19/24 21:49 Procedure Epistaxis Control Nostril: right Nose prepped with: phenylephrine and TXA Direct Inspection: yes and unable to visualize Clots Removed by: blowing nose Cautery Used: none Device Inserted: Rapid rhino 7.5cm single lumen Medical Decision Making Emergent evaluation of epistaxis. Occurred spontaneously without any trauma. Is not on any blood thinners or history of coagulopathy. Is not particularly hypertensive on arrival. Is protecting his airway. Right Rhino Rocket was placed. Patient did expel a humongous blood clot and reports that he feels much better after that. Right-sided Rhino Rocket was placed. Rhino Rocket had been pretty soaked in TXA prior to insertion. After balloon inflation, there is no additional bleeding apparent. There is some very mild oozing from the left side, but no active bleeding noted in the left nare. Patient was observed in the emergency department and did not have any additional bleeding. He was hemodynamically stable and comfortable with a Rhino Rocket in place. Lab work did demonstrate a slight elevation of his INR at 1.2. This is not a significant coagulopathy at the be addressed at this time. His hemoglobin is low at 9.2 however the last value we have is from over 12 years ago. So it is unclear what his baseline might be. I am not concerned for an acute blood loss anemia and there is no indication for transfusion. The patient has a previously scheduled PCP appointment tomorrow which I have recommended that he continue to attend. An urgent follow-up has been placed for ENT and ideally he will be seen in clinic for packing removal on Thursday. If he is unable to be seen in clinic on Thursday, he understands to return to the emergency department on Thursday to allow for removal to take place then. He was provided with prophylactic antibiotic to take during this time because of his history of valvular heart disease. Return precautions were advised to the family as well as the patient. [facility] All Active Problems (Updated 10/19/24 @ 23:00 by Yakelin Ball MD) Acute anterior epistaxis (Acute) Allergic rhinitis (Acute) Dermatitis (Acute) Wart of hand (Acute) Cough (Acute) Ulcerative colitis (Chronic 03/29/07) Prediabetes (Acute) Aortic stenosis (Chronic) Medical History Disease of pericardium (03/29/07) Unspecified disease of pericardium (03/29/07) Surgical History Hx of left cataract extraction both eyes History of surgery of liver Hx of cholecystectomy Colonoscopy - MAC (03/26/16) Family History Mother Cancer Father No problems noted. Sister No problems noted. Brother Cancer Sister No problems noted. Sister No problems noted. Brother No problems noted. Brother No problems noted. Son No problems noted. Daughter Diabetes Social History Smoking/Tobacco Use Status: Never Second Hand Exposure: Yes Smoking risk assessment performed?: Yes Alcohol Intake: former Drug use: Never Substance use type: does not use Caregiver/Support person: No Household members: spouse Housing: house Communication Needs: None Do you need help understanding health information?: Never Pets and animals: Yes Pets and animals: cat(s) Sexually active: No Do you think of yourself as: straight/heterosexual Current gender identity: male What is your relationship status?: How often do you talk on the phone with friends or family?: decline to answer How often do you get together with friends or relatives?: decline to answer How often do you attend mormonism or pentecostal services?: decline to answer Do you belong to any clubs or organized social groups?: decline to answer Panel score (0-1 are the most socially isolated patients): 1 What type of physical activity do you participate in: other Details: Physical work Mary Beth/Bahai: [employer] Special mary beth needs: No Seatbelt use: always Helmet use: No Drive intox or ride w/intox ups driver: No Do you feel safe at home: Yes Do you feel safe in your relationship?: Yes
[2024-10-19 22:25] LABS: Abs Immature Grans 0.02 10^3/uL (0.0-0.06); Absolute Basophil Count 0.02 10^3/uL (0.0-0.2); Absolute Eosinophil Count 0.11 10^3/uL (0.0-0.7); Absolute Lymphocyte Count 1.54 10^3/uL (1.2-3.4); Absolute Monocyte Count 0.48 10^3/uL (0.1-0.8); Absolute Neutrophil Count 3.46 10^3/uL (1.2-6.7); Basophils % 0.4 %; HCT 27.6 % (40.0-50.0); HGB 9.2 g/dL (13.5-17.5); Immature Grans % 0.4 %; Lymphocytes % 27.4 %; MCH 36.1 pg (27.0-33.0); MCHC 33.3 % (32.0-36.0); MCV 108 fL (80-95); MPV 10.7 fL (8.0-11.0); Monocytes % 8.5 %; Neutrophils % 61.3 %; Platelet Count 191 10^3/uL (130-400); RBC 2.55 10^6/uL (4.36-5.78); RDW-SD 51.4 fL; WBC 5.63 10^3/uL (4.4-10.8)
[2024-10-19 22:34] LABS: INR 1.2 (0.9-1.1); Prothrombin Time 11.5 sec (9.1-11.1)
[2024-10-19 22:42] LABS: Diff Comment RBC Morph Reviewed; Macrocytosis 2+
[2024-10-19] MEDS: Cephalexin 500 MG CAP, 2 CAPS/BTL PO (23:05)
[2024-10-19 23:13] VITALS: BP 136/78; PULSE 95; RESP 18; O2SAT 94
== END 2024-10-19 23:13 | disposition home or self-care (01) ==
LOC: ER 23:13
PROVIDERS: Emergency Provider Emergency Medicine; PCP Nurse Practitioner Family
DX: R04.0 Epistaxis (principal)
CPT/HCPCS: 30903; 99283; 85025; 85610; J2405

== ENCOUNTER 2024-10-22 14:01 | Emergency (ER) | payer MEDICARE, SELFPAY ==
[2024-10-22 14:04] VITALS: BP 134/80; PULSE 111; RESP 16; TEMP 36.6; O2SAT 95
--- NOTE | 2024-10-22 14:51 | W.ED.GENAD ---
Discharge Plan Disposition Patient Disposition: Home Discharge Details Clinical Impression: Epistaxis, Acute exacerbation of chronic low back pain Primary Care Provider: Rosita Rodriguez ED Provider: Amberly Guillaume Home Meds and New Rx's Prescriptions: New lidocaine 4 % adhesive patch,medicated 1 patch topical DAILY PRNQty: 15 0RF No Action triamcinolone acetonide 0.1 % cream 1 applic topical DAILY Qty: 80 0RF Rx Instructions: nightly for 2 weeks and then as needed mometasone 50 mcg/actuation spray,non-aerosol 2 spray intranasal DAILY Qty: 17 2RF Rx Instructions: administer into each nostril mupirocin 2 % ointment 1 applic topical TID Qty: 22 0RF loperamide-simethicone [Imodium Multi-Symptom Relief] 1 EACH tablet 2 tab PO DAILY Vitamin C 1,000 mg Tablet Extended Release 1,000 mg PO DAILY ginkgo biloba [Ginkoba] 40 mg Tablet 120 mg PO DAILY Discharge Instructions Instructions: Low Back Pain (DC), Nosebleeds ED Referrals: [facility] [Provider Group] Referral Note: Call on Thursday to arrange follow-up to have Rhino Rocket removed. Rosita Rodriguez [employer] [Primary Care Provider, Medicine] Referral Note: Please call for follow-up within the next week to discuss your ongoing back pain. Discharge Data Discharge Physician: Amberly Guillaume [facility] General Date/Time Provider Initiated Documentation: 10/22/24 14:02. HPI Narrative: 84-year-old male with history of aortic stenosis presents for Rhino Rocket removal. Patient was seen here several days ago and had a Rhino Rocket placed. He was given an urgent referral to ENT to have Rhino Rocket removed on Thursday however he states that when he called no one was available to see him. Per his instructions he came back to the emergency department today to have the Rhino Rocket removed. He feels that there was a hole in the Rhino Rocket as he has been filling it up with air frequently. He denies any significant bleeding since the Rhino Rocket was put in place. No blood coming down his throat. He has been having ongoing difficulty with lower back pain. He does have chronic back pain however it has worsened recently. He went to a chiropractor 2 weeks ago and that caused a couple of broken ribs. He has not gone back. The pain is primarily at night and makes it difficult to sleep. He has to sleep sitting up. The pain is primarily in his right lower back. Does not radiate to his leg. Denies any numbness or tingling to his extremities. No weakness in his extremities. No loss of bowel or bladder function. No saddle anesthesia. He has not been seen by a photo specialist. He did say that several years ago he had a significant trauma causing his back to be misshapened now. Denies any recent falls or injuries however he did do some lifting prior to the exacerbation of the pain. Related Data Home Medications ?Medication ?Instructions ?Recorded ?Confirmed loperamide 2 mg-simethicone 125 mg 2 tab PO DAILY 06/07/15 10/22/24 tablet (Imodium Multi-Symptom Relief) ascorbic acid (vitamin C) 1,000 mg 1,000 mg PO DAILY 06/01/20 10/22/24 tablet,extended release (Vitamin C ER) ginkgo biloba 40 mg tablet 120 mg PO DAILY 06/01/20 10/22/24 mupirocin 2 % topical ointment 1 applic topical TID #22 grams 11/19/20 10/22/24 mometasone 50 mcg/actuation nasal 2 spray intranasal DAILY #17 grams 04/28/23 10/22/24 spray triamcinolone acetonide 0.1 % 1 applic topical DAILY #80 grams 04/28/23 10/22/24 topical cream lidocaine 4 % topical patch 1 patch topical DAILY PRN #15 ea 10/22/24 Previous Rx's ?Medication ?Instructions ?Recorded mupirocin 2 % topical ointment 1 applic topical TID #22 grams 11/19/20 mometasone 50 mcg/actuation nasal 2 spray intranasal DAILY #17 grams 04/28/23 spray triamcinolone acetonide 0.1 % 1 applic topical DAILY #80 grams 04/28/23 topical cream lidocaine 4 % topical patch 1 patch topical DAILY PRN #15 ea 10/22/24 Allergies Allergy/AdvReac Type Severity Reaction Status Date / Time aspirin Allergy Unknown Unknown Verified 10/22/24 14:10 Sulfa (Sulfonamide AdvReac Intermediate NAUSEA/VOMI Verified 10/22/24 14:10 Antibiotics) TING Salicylates * (Salicylates AdvReac Mild GI UPSET Verified 10/22/24 14:10 *RETIRED-10/29/15) General Stated Complaint: Recheck KAYLI: 3 Review of Systems Narrative: Remainder of review of systems otherwise negative except for as noted in the HPI x 10. Exam Narrative Exam Narrative: General: non-toxic, no respiratory distress, comfortable HEENT: normocephalic, atraumatic, lids and lashes normal, PERRL, EOMI, anicteric sclera, no conjunctival injection, Rhino Rocket in place right naris, moist oral mucosa Musculoskeletal: full range of motion of arms and legs, no tenderness to palpation. no clubbing, cyanosis, or edema Back exam: no paraspinal tenderness, no mid-line tenderness, normal strength & sensation, negative SLR's, DTR's 2+ bilaterally Neurologic: GCS 15, speech normal, sensation intact, appropriate for age, strength normal, baseline tremors Psych: alert and oriented Skin: no petechiae, no lesions, warm and dry Course Vital Signs Vital signs: Vital Signs Temperature 36.6 C 10/22/24 14:04 Pulse 111 H 10/22/24 14:04 Respiratory Rate 16 10/22/24 14:04 Blood Pressure 134/80 10/22/24 14:04 Pulse Oximetry 95 10/22/24 14:04 Temperature 36.6 C 10/22/24 14:04 Temperature Source Oral 10/22/24 14:04 Pulse 111 H 10/22/24 14:04 Respiratory Rate 16 10/22/24 14:04 Blood Pressure 134/80 10/22/24 14:04 Pulse Oximetry 95 10/22/24 14:04 Oxygen Delivery Method Room Air 10/22/24 14:04 Oxygen Flow Rate 0 10/22/24 14:04 Pain Level 0 10/22/24 14:04 Procedure Epistaxis Control Date of Procedure: 10/22/24 Time of Procedure: 14:40 Provider that performed the procedure: Amberly Guillaume Patient Consented: Verbally Time Out Performed: Yes Nostril: right Direct Inspection: unable to visualize Clots Removed by: blowing nose Cautery Used: none Device Inserted: Rapid rhino 7.5cm single lumen Medical Decision Making 84-year-old female with history of aortic stenosis presents for Rhino Rocket removal and lower back pain. Rhino Rocket was removed. 15 mL of air were taken out of the Rhino Rocket. Upon removal of Rhino Rocket the entire portion that was in his naris is covered and fresh red blood. He did have ongoing bleeding with removal of the Rhino Rocket. Nasal clamp was placed and a new 7.5 cm Rhino Rocket was placed in the right naris with 8 mL of air. Patient was monitored for 30 minutes after Rhino Rocket replacement without any further significant bleeding. Another referral was made to ENT. As this is the second time the Rhino Rocket was placed in the emergency department I have encouraged patient to follow-up with ENT to have the Rhino Rocket removed. Of note patient had been taking ginkgo biloba at home. This is known to have antiplatelet activity. It is possible that this is the cause of his difficulty with this ongoing nosebleed. He stopped taking the ginkgo biloba at the initial nosebleed. I have encouraged him to not take any more of the ginkgo biloba at this time. Patient did have an elevated heart rate documented on arrival. ED creased during ED stay. I did manually check his heart rate to during his evaluation and his heart rate was 72. I feel that the increased heart rate is the machine picking up on patient's tremor. He does not feel like his heart is racing. He does not have any chest pain or shortness of breath. At time my evaluation I am unable to elicit any back pain. Patient has no saddle anesthesia, no loss of bowel or bladder control. Patient's history and physical exam are consistent with musculoskeletal back pain. There are no red flags for cauda equina syndrome or infection. No radicular symptoms. We will treat with Lidoderm patch. Patient is to follow up closely with primary care or return to the ED for any worsening symptoms. [facility] All Active Problems (Updated 10/22/24 @ 14:58 by Amberly Guillaume MD) Acute exacerbation of chronic low back pain (Acute) Epistaxis (Acute) Acute anterior epistaxis (Acute) Allergic rhinitis (Acute) Dermatitis (Acute) Wart of hand (Acute) Cough (Acute) Ulcerative colitis (Chronic 03/29/07) Prediabetes (Acute) Aortic stenosis (Chronic) Medical History Disease of pericardium (03/29/07) Unspecified disease of pericardium (03/29/07) Surgical History Hx of left cataract extraction both eyes History of surgery of liver Hx of cholecystectomy Colonoscopy - MAC (03/26/16) Family History Mother Cancer Father No problems noted. Sister No problems noted. Brother Cancer Sister No problems noted. Sister No problems noted. Brother No problems noted. Brother No problems noted. Son No problems noted. Daughter Diabetes Social History Smoking/Tobacco Use Status: Never Second Hand Exposure: Yes Smoking risk assessment performed?: Yes Alcohol Intake: former Drug use: Never Substance use type: does not use Caregiver/Support person: No Household members: spouse Housing: house Communication Needs: None Do you need help understanding health information?: Never Pets and animals: Yes Pets and animals: cat(s) Sexually active: No Do you think of yourself as: straight/heterosexual Current gender identity: male What is your relationship status?: How often do you talk on the phone with friends or family?: decline to answer How often do you get together with friends or relatives?: decline to answer How often do you attend hindu or lutheran services?: decline to answer Do you belong to any clubs or organized social groups?: decline to answer Panel score (0-1 are the most socially isolated patients): 1 What type of physical activity do you participate in: other Details: Physical work Mary Beth/Episcopalian: Church Special mary beth needs: No Seatbelt use: always Helmet use: No Drive intox or ride w/intox funeral limousine driver: No Do you feel safe at home: Yes Do you feel safe in your relationship?: Yes
[2024-10-22] MEDS: Lidocaine 5% Patch 1 PATCH TP (15:07)
[2024-10-22 15:19] VITALS: BP 134/81; PULSE 100; RESP 14; O2SAT 97
[2024-10-22 15:20] VITALS: BP 134/81; PULSE 100; RESP 14; O2SAT 97
== END 2024-10-22 15:31 | disposition home or self-care (01) ==
PROVIDERS: Emergency Provider Emergency Medicine Emergency Medical Services; PCP Nurse Practitioner Family
DX: R04.0 Epistaxis (principal); M54.50 Low back pain, unspecified; G89.29 Other chronic pain
CPT/HCPCS: 30903; 99283

== ENCOUNTER 2024-10-24 11:20 | Emergency (ER) | payer MEDICARE, SELFPAY ==
[2024-10-24 11:23] VITALS: BP 128/74; PULSE 92; RESP 18; TEMP 36.6; O2SAT 91
--- NOTE | 2024-10-24 11:54 | ED.GENADUL_ITS ---
Discharge Plan Disposition Patient Disposition: Home Condition: Stable Discharge Details Clinical Impression: Epistaxis Primary Care Provider: Rosita Rodriguez ED Provider: Gold Carpio Home Meds and New Rx's Prescriptions: No Action triamcinolone acetonide 0.1 % cream 1 applic topical DAILY Qty: 80 0RF Rx Instructions: nightly for 2 weeks and then as needed mometasone 50 mcg/actuation spray,non-aerosol 2 spray intranasal DAILY Qty: 17 2RF Rx Instructions: administer into each nostril mupirocin 2 % ointment 1 applic topical TID Qty: 22 0RF loperamide-simethicone [Imodium Multi-Symptom Relief] 1 EACH tablet 2 tab PO DAILY Vitamin C 1,000 mg Tablet Extended Release 1,000 mg PO DAILY ginkgo biloba [Ginkoba] 40 mg Tablet 120 mg PO DAILY lidocaine 4 % adhesive patch,medicated 1 patch topical DAILY PRNQty: 15 0RF Discharge Instructions Instructions: Nosebleeds ED Additional Instructions: You were seen in the emergency department for your complex nosebleed or epistaxis that has required multiple Rhino Rocket's, I spoke with Dr. Mars of ENT, they will see you in office tomorrow October 25 at 3:30 PM. Their phone number is [phone]. Please take Tylenol and ibuprofen for the discomfort in your sinuses as this is likely just physical discomfort from the Rhino Rocket itself, try to eat soft foods overnight. Please return for any severe increase in pain, significant bleeding despite Rhino Rocket being in place or any other emergent concerns. Referrals: Rosita Rodriguez NP [Primary Care Provider, Medicine] Yohannes Mars MD [ [facility] STAFF PHYSICIAN, ENT Surgical] Discharge Data Discharge Date/Time-TO BE ENTERED AT DEPARTURE: 10/24/24 12:31 HPI General Date/Time Provider Initiated Documentation: 10/24/24 11:27 . HPI Narrative: 84 year-old male presents to ED today by POV/ambulating with a chief complaint of requesting removal of RhinoRocket that had to be replaced after failed res olution of bleeding from intial RhinoRocket last week, had been referred to ENT. Quality described as uncomfortable causing sinus pressure on R side and headache, no radiation to active bleeding, scleral injection, drooling, trismus, vocal changes. Severity is described as moderate. Palliating factors include was using Afrin in the other nare. Provoking factors include nothing specific. Events leading up to the incident/Associated Symptoms: Patients had attempted to contact ENT for removal which was recommended but stated they hadn't heard back. Patient not anticoagulated. Related Data Home Medications ?Medication ?Instructions ?Recorded ?Confirmed loperamide 2 mg-simethicone 125 mg 2 tab PO DAILY 08/1710/25/24 tablet (Imodium Multi-Symptom Relief) ascorbic acid (vitamin C) 1,000 mg 1,000 mg PO DAILY 0 06/01/20 10/25/24 tablet,extended release (Vitamin C ER) ginkgo biloba 40 mg tablet 120 mg PO DAILY 06/01/20 mupirocin 2 % topical ointment 1 applic topical TID #2 2 grams 11/19/20 10/25/24 mometasone 50 mcg/actuation nasal 2 spray intranasal D AILY #17 grams 04/28/23 10/25/24 spray triamcinolone acetonide 0.1 % 1 applic topical DAILY # 80 grams 04/28/23 10/25/24 topical cream lidocaine 4 % topical patch 1 patch topical DAILY PRN #15 ea 10/22/24 10/25/24 Previous Rx's ?Medication ?Instructions ?Recorded mupirocin 2 % topical ointment 1 applic topical TID #2 2 grams 11/19/20 mometasone 50 mcg/actuation nasal 2 spray intranasal D AILY #17 grams 04/28/23 spray triamcinolone acetonide 0.1 % 1 applic topical DAILY # 80 grams 04/28/23 topical cream lidocaine 4 % topical patch 1 patch topical DAILY PRN #15 ea 10/22/24 Allergies Allergy/AdvReac Type Severity Reaction Status Date / Time aspirin Allergy Unknown Unknown Verified 10/25/24 15:36 Sulfa (Sulfonamide AdvReac Intermediate NAUSEA/VOMI Verified 10/25/24 15:36 Antibiotics) TING Salicylates * (Salicylates AdvReac Mild GI UPSET Verified 10/25/24 15:36 *RETIRED-10/29/15) General Stated Complaint: Recheck KAYLI: 4 Review of Systems All systems reviewed & are unremarkable except as noted in HPI and below Exam Narrative Exam Narrative: GENERAL APPEARANCE: Well-nourished, non-toxic, awake and alert, atraumatic, no acute distress. SKIN: Warm, pink, dry, intact, without rashes/lesions/ulcerations. HEAD: Normocephalic, atraumatic, normal hair distribution for gender/age. EYES: Normal conjunctiva, no exudates on lids/lashes. ENT: Nares patent, no circumoral cyanosis, no facial swelling, RhinoRocket in place R nare NECK: Supple, trachea midline, painless cervical ROM. LUNGS/CHEST: Non-labored respirations, normal A/P diameter, symmetrical expansion, no chest wall deformity HEART (CV/PV): No peripheral edema, no JVD. ABDOMEN: Soft, non-distended, no guarding. MSK: Normal ROM, no swelling/deformity to bilateral UEs or LEs, moving all extremities without weakness, no cyanosis, spine midline without tenderness, normal curvature. NEURO: Mental Status AAOx4 - alert to person, place, time, events No facial droop, no forehead involvement. Motor: No focal weakness - strength 5/5 in bilateral UEs and LEs, proximal and distal, symmetric. Sensory: sensation intact to light touch globally. Gait NT. PSYCH: euthymic, cooperative, pleasant, appropriate speech Course Vital Signs Vital signs: Vital Signs Temperature 36.6 C 10/24/24 11:23 Pulse 92 H 10/24/24 11:23 Respiratory Rate 18 10/24/24 11:23 Blood Pressure 128/74 10/24/24 11:23 Pulse Oximetry 91 L 10/24/24 11:23 Temperature 36.6 C 10/24/24 11:23 Temperature Source Oral 10/24/24 11:23 Pulse 92 H 10/24/24 11:23 Respiratory Rate 18 10/24/24 11:23 Blood Pressure 128/74 10/24/24 11:23 Blood Pressure Position Sitting 10/24/24 11:23 Pulse Oximetry 91 L 10/24/24 11:23 Oxygen Delivery Method Room Air 10/24/24 11:23 Oxygen Flow Rate 0 10/24/24 11:23 Pain Level 0 10/24/24 11:23 Medical Decision Making This dictation utilizes [id number] dictation software and may contain unedited grammatical errors. 84 year-old male presents to ED today by POV/ambulating with a chief complaint of requesting removal of RhinoRocket that had to be replaced after failed resolution of bleeding from intial RhinoRocket last week, had been referred to ENT. Quality described as uncomfortable causing sinus pressure on R side and headache, no radiation to active bleeding, scleral injection, drooling, trismus, vocal changes. Severity is described as moderate. Palliating factors include was using Afrin in the other nare. Provoking factors include nothing specific. Events leading up to the incident/Associated Symptoms: Patients had attempted to contact ENT for removal which was recommended but stated they hadn't heard back. Patients' medical history: Noncontributory. Family and social history: Noncontributory. Pertinent exam findings / vital signs include RhinoRocket in place R nare, no bleeding posterior oropharynx. Differential / pathologies of concern include epistaxis. Diagnostic studies of: -None. Interventions of: -Consulted with ENT to facilitate f/u for patient- ENT was aware and had planned to see them tomorrow. ED Course/Assessment/Plan: 84-year-old male had Rhino Rocket placed last week and return to a couple days later and had taken out but it kept bleeding so another 1 was placed, he is recommended follow-up with ENT. I spoke with Dr. Mars will see the patient tomorrow at 1530. Findings not consistent with active bleeding. Disposition of Epistaxis. Patient verbalized understanding of the plan and return to ED criteria and engaged in shared decision making. Medical Records Medical records reviewed: Yes I reviewed the patient's medical records. [facility] All Active Problems (Updated 10/24/24 @ 12:26 by SHEA Albarran) Epistaxis (Acute) Acute exacerbation of chronic low back pain (Acute) Epistaxis (Acute) Acute anterior epistaxis (Acute) Allergic rhinitis (Acute) Dermatitis (Acute) Wart of hand (Acute) Cough (Acute) Ulcerative colitis (Chronic 03/29/07) Prediabetes (Acute) Aortic stenosis (Chronic) Medical History Disease of pericardium (03/29/07) Unspecified disease of pericardium (03/29/07) Surgical History Hx of left cataract extraction both eyes History of surgery of liver Hx of cholecystectomy Colonoscopy - MAC (03/26/16) Family History Mother Cancer Father No problems noted. Sister No problems noted. Brother Cancer Sister No problems noted. Sister No problems noted. Brother No problems noted. Brother No problems noted. Son No problems noted. Daughter Diabetes Social History Smoking/Tobacco Use Status: Never Second Hand Exposure: Yes Smoking risk assessment performed?: Yes Alcohol Intake: former Drug use: Never Substance use type: does not use Caregiver/Support person: No Household members: spouse Housing: house Communication Needs: None Do you need help understanding health information?: Never Pets and animals: Yes Pets and animals: cat(s) Sexually active: No Do you think of yourself as: straight/heterosexual Current gender identity: male What is your relationship status?: How often do you talk on the phone with friends or family?: decline to answer How often do you get together with friends or relatives?: decline to answer How often do you attend mandaeism or uatsdin services?: decline to answer Do you belong to any clubs or organized social groups?: decline to answer Panel score (0-1 are the most socially isolated patients): 1 What type of physical activity do you participate in: other Details: Physical work Mary Beth/Rastafarian: Mandaeism Special mary beth needs: No Seatbelt use: always Helmet use: No Drive intox or ride w/intox driver/refuse collector: No Do you feel safe at home: Yes Do you feel safe in your relationship?: Yes
== END 2024-10-24 12:31 | disposition home or self-care (01) ==
PROVIDERS: Emergency Provider Physician Assistant; PCP Nurse Practitioner Family
DX: R04.0 Epistaxis (principal)
CPT/HCPCS: 99282

== ENCOUNTER 2024-11-09 03:56 | Outpatient (CLI) | payer MEDICARE, SELFPAY ==
[2024-11-09 12:30] LABS: Hemoglobin A1C 6.8 % (<5.7)
[2024-11-09 12:31] LABS: Anion Gap 3.3 mmol/L (3-11); BUN 20 mg/dL (7-18); CO2 28.7 mmol/L (21.0-32.0); Calcium 8.8 mg/dL (8.5-10.1); Calculated LDL 43 mg/dL (<100); Chloride 99 mmol/L (98-107); Cholesterol 90 mg/dL (<200); Estimated GFR 74.68 (mL/min/1.73m2); Glucose 144 mg/dL (74-106); HDL Cholesterol 39 mg/dL (>or=40); Potassium 4.0 mmol/L (3.5-5.1); Sodium 131 mmol/L (136-145); Triglyceride 43 mg/dL (<150)
== END 2024-11-09 03:57 | disposition home or self-care (01) ==
LOC: LOS 03:56
PROVIDERS: PCP Nurse Practitioner Family; Visit Provider Nurse Practitioner Family
DX: R73.03 Prediabetes (principal); K51.80 Other ulcerative colitis without complications; I35.0 Nonrheumatic aortic (valve) stenosis; R04.0 Epistaxis; Z13.6 Encounter for screening for cardiovascular disorders
CPT/HCPCS: 36415; 80048; 80061; 83036

== ENCOUNTER 2024-11-14 16:31 | Inpatient (IN) | payer MEDICARE, SELFPAY ==
[2024-11-14 16:34] VITALS: BP 130/77; PULSE 92; RESP 16; TEMP 36.6; O2SAT 93
--- NOTE | 2024-11-14 16:45 | DI.CT_ITS ---
Exam(s) CT ABDOMEN PELVIS W EXAM: CT ABDOMEN PELVIS W CLINICAL HISTORY: right sided abdominal pain. TECHNIQUE: Imaging Protocol: Axial computed tomography images with coronal and sagittal reformatted images were created and reviewed CONTRAST MATERIAL: Intravenous: Omnipaque-350 85cc Oral: None COMPARISON: CT ABD PELVIS WITH CONTRAST from 10/13/2010 FINDINGS: VISUALIZED LUNG BASES: Cardiomegaly noted. No pleural effusions.. ABDOMEN: There is no ascites. LIVER: There are no focal hepatic lesions evident. Minimally dilated intrahepatic ducts related post cholecystectomy status. GALLBLADDER/BILIARY: Gallbladder surgically absent. CBD is mildly dilated most probably related to patient's advanced age and post cholecystectomy status. PANCREAS: No evidence of pancreatic mass nor dilatation of the pancreatic duct. SPLEEN: Spleen is not enlarged. No obvious intrasplenic lesions. Splenic and portal veins are patent. ADRENALS: There are no significant adrenal masses. KIDNEYS:There are cysts in the right kidney. The largest is partially exophytic off the lateral cortex and measures 2.8 by 2.7 cm. There are no solid lesions in either kidney. There is a nonobstructive 5 mm calculus in the inferior pole region of the right kidney. No calculi nor hydronephrosis in left kidney. No solid renal masses.. ABDOMINAL AORTA: Abdominal aorta is not enlarged. LYMPH NODES:There is no retroperitoneal nor paraaortic adenopathy. ABDOMINAL WALL: Fat only containing left inguinal hernia. GI: The appendix is abnormal. It is thickened to a diameter of 13 mm with a thickened wall measuring 4 mm thickness circumferentially. There is no calcified appendicolith. However, there is periappendiceal streaking. The appearance of the base of the cecum is edematous which is either related to the appendicitis or possibly causative PELVIS: GI: No evidence of acute diverticulitis. LYMPH NODES: There is no intrapelvic nor inguinal adenopathy. REPRODUCTIVE: Prostate size normal. Seminal vesicles unremarkable. URINARY BLADDER: There is moderate distension of the urinary bladder. OSSEOUS: Diffuse osteopenia. Mild height loss of L3 and L5, probably chronic. No significant osseous lesions evident. IMPRESSION: The main finding here is a acute appendicitis, as described above. There is also some edema of the cecal base. This may be secondary to the appendicitis or possibly causative. Report called by myself to ER physician 11/14/2024 at 6:23 p.m. RADIATION DOSE DELIVERED: 399.5mGy.cm Total DLP DATA REPOSITORY: All CT scans at this facility are submitted to the National Radiology Data Registry (NRDR) Dose Index Registry (DIR) with the [employer] (A[employer]). RADIATION OPTIMIZATION: All CT scans at this facility use at least one of these dose optimization techniques: automated exposure control; mA and/or kV adjustment per patient size (includes targeted exams where dose is matched to clinical indication); or iterative reconstruction.
--- NOTE | 2024-11-14 17:00 | W.ED.GENAD ---
Discharge Plan Disposition Patient Disposition: Admit to [facility] Condition: Stable Discharge Details Clinical Impression: Acute appendicitis Primary Care Provider: Rosita Rodriguez ED Provider: Danny Iyer [place] Meds and New Rx's Prescriptions: No Action triamcinolone acetonide 0.1 % cream 1 applic topical DAILY Qty: 80 0RF Rx Instructions: nightly for 2 weeks and then as needed mometasone 50 mcg/actuation spray,non-aerosol 2 spray intranasal DAILY Qty: 17 2RF Rx Instructions: administer into each nostril mupirocin 2 % ointment 1 applic topical TID Qty: 22 0RF loperamide-simethicone [Imodium Multi-Symptom Relief] 1 EACH tablet 2 tab PO DAILY Vitamin C 1,000 mg Tablet Extended Release 1,000 mg PO DAILY ginkgo biloba [Ginkoba] 40 mg Tablet 120 mg PO DAILY lidocaine 4 % adhesive patch,medicated 1 patch topical DAILY PRNQty: 15 0RF HPI General Mode of arrival: ambulatory. Date/Time Provider Initiated Documentation: 11/14/24 16:33. Limitations to Documentation: no limitations. Information obtained by: patient. History of Present Illness 84 year old M presents to the emergency department with the chief complaint of right sided abdominal pain, described as moderate, Quality is described as aching, and is localized to the abdomen. Patient reports no radiation. Patient started experiencing this day(s) (1) and it has been constant. No relieving factors improve symptom(s), No exacerbating factors reported . Patient notes no other symptoms.. Patient did receive the following treatments prior to arrival, none Related Data Home Medications ?Medication ?Instructions ?Recorded ?Confirmed loperamide 2 mg-simethicone 125 mg 2 tab PO DAILY 06/07/15 11/14/24 tablet (Imodium Multi-Symptom Relief) ascorbic acid (vitamin C) 1,000 mg 1,000 mg PO DAILY 06/01/20 11/14/24 tablet,extended release (Vitamin C ER) ginkgo biloba 40 mg tablet 120 mg PO DAILY 06/01/20 11/14/24 mupirocin 2 % topical ointment 1 applic topical TID #22 grams 11/19/20 11/14/24 mometasone 50 mcg/actuation nasal 2 spray intranasal DAILY #17 grams 04/28/23 11/14/24 spray triamcinolone acetonide 0.1 % 1 applic topical DAILY #80 grams 04/28/23 11/14/24 topical cream lidocaine 4 % topical patch 1 patch topical DAILY PRN #15 ea 10/22/24 11/14/24 Previous Rx's ?Medication ?Instructions ?Recorded mupirocin 2 % topical ointment 1 applic topical TID #22 grams 11/19/20 mometasone 50 mcg/actuation nasal 2 spray intranasal DAILY #17 grams 04/28/23 spray triamcinolone acetonide 0.1 % 1 applic topical DAILY #80 grams 04/28/23 topical cream lidocaine 4 % topical patch 1 patch topical DAILY PRN #15 ea 10/22/24 Allergies Allergy/AdvReac Type Severity Reaction Status Date / Time aspirin Allergy Unknown Unknown Verified 11/14/24 16:39 Sulfa (Sulfonamide AdvReac Intermediate NAUSEA/VOMI Verified 11/14/24 16:39 Antibiotics) TING Salicylates * (Salicylates AdvReac Mild GI UPSET Verified 11/14/24 16:39 *RETIRED-10/29/15) General Stated Complaint: Abd Prob KAYLI: 3 Review of Systems All systems reviewed & are unremarkable except as noted in HPI and below Constitutional Constitutional: Denies chills, Denies fever(s) and Denies weakness Cardiovascular Cardiovascular: Denies chest pain and Denies dyspnea Respiratory Respiratory: Denies cough and Denies dyspnea Gastrointestinal Gastrointestinal: Reports abdominal pain, Denies nausea and Denies vomiting Genitourinary Genitourinary: Denies dysuria Neurologic Neurologic: Denies weakness Exam Const General: no acute distress Orientation: alert [facility] Head: normal to inspection Ears: external ears normal General nose exam: external nose normal Mouth: moist mucous membranes Eyes General: appearance normal, both eyes and all related structures Neck Neck: normal visual inspection Resp Effort & Inspection: normal respiratory effort and able to speak in complete sentences Cardio Rate: regular rate GI Palpation: soft, no guarding and tender Skin General skin exam: no rashes or lesions noted Neuro General: patient alert and patient oriented x3 Extrem General: normal to inspection Psych Mental Status: mental status grossly normal Course Vital Signs Vital signs: Vital Signs Temperature 36.6 C 11/14/24 16:34 Pulse 92 H 11/14/24 16:34 Respiratory Rate 16 11/14/24 16:34 Blood Pressure 130/77 11/14/24 16:34 Pulse Oximetry 93 11/14/24 16:34 Temperature 36.6 C 11/14/24 16:34 Temperature Source Oral 11/14/24 16:34 Pulse 92 H 11/14/24 16:34 Respiratory Rate 16 11/14/24 16:34 Blood Pressure 130/77 11/14/24 16:34 Blood Pressure Position Sitting 11/14/24 16:34 Pulse Oximetry 93 11/14/24 16:34 Oxygen Delivery Method Room Air 11/14/24 16:34 Oxygen Flow Rate 0 11/14/24 16:34 Pain Level 0 11/14/24 16:34 Medical Decision Making 84-year-old male whose had a prior cholecystectomy comes in with right-sided abdominal pain. He says last night he felt a pop on the right side of his abdomen. He says he said some mild discomfort in the right side of his abdomen since so came here for evaluation. He denies any fevers, chills, changes in bowel or bladder habits, nausea or vomiting. No chest pain or difficulty breathing. He says the pain is mild currently. He has tenderness in the right upper and right lower quadrant. I do not feel palpable hernia but given the complaint of the right side pain I am going to proceed with CBC, CMP, lipase and CT abdomen pelvis to evaluate for entities such as possible hernia that I am unable to feel on exam most likely ruptured bowel given he has no peritoneal findings on exam Patient is stable, CT shows evidence of acute appendicitis. I ordered Zosyn. Spoke with surgeon who requested bridging orders be put in for admission Differential Diagnosis Differential Diagnosis: Hernia, ruptured bowel Lab Data Lab results reviewed: Yes I reviewed the patient's lab results. [facility] [place] All Active Problems (Updated 11/14/24 @ 20:08 by Danny Iyer MD) Acute appendicitis (Acute) Epistaxis (Acute) Acute exacerbation of chronic low back pain (Acute) Epistaxis (Acute) Acute anterior epistaxis (Acute) Allergic rhinitis (Acute) Dermatitis (Acute) Wart of hand (Acute) Cough (Acute) Ulcerative colitis (Chronic 03/29/07) Prediabetes (Acute) Aortic stenosis (Chronic) Medical History Disease of pericardium (03/29/07) Unspecified disease of pericardium (03/29/07) Surgical History Hx of left cataract extraction both eyes History of surgery of liver Hx of cholecystectomy Colonoscopy - MAC (03/26/16) Family History Mother Cancer Father No problems noted. Sister No problems noted. Brother Cancer Sister No problems noted. Sister No problems noted. Brother No problems noted. Brother No problems noted. Son No problems noted. Daughter Diabetes Social History Smoking/Tobacco Use Status: Never Second Hand Exposure: Yes Smoking risk assessment performed?: Yes Alcohol Intake: former Drug use: Never Substance use type: does not use Caregiver/Support person: No Household members: spouse Housing: house Communication Needs: None Do you need help understanding health information?: Never Pets and animals: Yes Pets and animals: cat(s) Sexually active: No Do you think of yourself as: straight/heterosexual Current gender identity: male What is your relationship status?: How often do you talk on the phone with friends or family?: decline to answer How often do you get together with friends or relatives?: decline to answer How often do you attend yazidism or methodist services?: decline to answer Do you belong to any clubs or organized social groups?: decline to answer Panel score (0-1 are the most socially isolated patients): 1 What type of physical activity do you participate in: other Details: Physical work Mary Beth/Gnosticist: Congregational Special mary beth needs: No Seatbelt use: always Helmet use: No Drive intox or ride w/intox automobile drivers: No Do you feel safe at home: Yes Do you feel safe in your relationship?: Yes
[2024-11-14 17:12] VITALS: BP 127/91; PULSE 85; RESP 16; O2SAT 96
[2024-11-14 17:14] LABS: Abs Immature Grans 0.04 10^3/uL (0.0-0.06); HCT 25.2 % (40.0-50.0); HGB 8.3 g/dL (13.5-17.5); Immature Grans % 0.5 %; MCH 35.9 pg (27.0-33.0); MCHC 32.9 % (32.0-36.0); MCV 109 fL (80-95); MPV 9.4 fL (8.0-11.0); Platelet Count 228 10^3/uL (130-400); RBC 2.31 10^6/uL (4.36-5.78); RDW 14.0 % (11.8-14.1); RDW-SD 55.4 fL; WBC 7.60 10^3/uL (4.4-10.8)
[2024-11-14 17:26] LABS: Macrocytosis 2+
[2024-11-14 17:30] LABS: ALT 18 U/L (16-63); AST 19 U/L (15-37); Albumin 2.5 g/dL (3.4-5.0); Alkaline Phosphatase 76 U/L (46-116); Anion Gap 5.2 mmol/L (3-11); BUN 16 mg/dL (7-18); Bilirubin, Total 0.4 mg/dL (0.2-1.0); CO2 26.8 mmol/L (21.0-32.0); Calcium 8.7 mg/dL (8.5-10.1); Chloride 99 mmol/L (98-107); Estimated GFR 84.74 (mL/min/1.73m2); Glucose 118 mg/dL (74-106); Magnesium 1.7 mg/dL (1.8-2.4); Potassium 4.5 mmol/L (3.5-5.1); Sodium 131 mmol/L (136-145); Total Protein 11.6 g/dL (6.4-8.2)
[2024-11-14 17:39] LABS: Lipase 47 U/L (<78)
[2024-11-14] MEDS: Normal Saline - Diluent 50 ML VIAL IJ (17:52)
[2024-11-14] MEDS: Omnipaque 350 MG/ML 100 ML BTL IJ (17:53)
[2024-11-14 18:11] LABS: Glucose Negative (Negative)
[2024-11-14 18:21] LABS: C & S Indicated? No; RBC 20-50 HPF (0-2); WBC 0-2 HPF (0-5)
[2024-11-14] MEDS: Normal Saline 1,000 ML 125 ML IV (18:50)
[2024-11-14] MEDS: PIPERACILLIN/TAZO 4.5 GM in Normal Saline 100 ML IVPB (18:51)
[2024-11-14 19:03] VITALS: BP 101/74; PULSE 94; RESP 16; TEMP 36.9; O2SAT 94
--- NOTE | 2024-11-14 20:08 | W.PC.ACHO ---
Registration Status: REG ER Primary Language: Preferred Language: Kazakh ED Information & Data Chief Complaint Abd Prob 11/14/24 17:12 Chief Complaint Abd Prob 11/14/24 17:03 Triage Note Patient was sent from urgent 11/14/24 16:34 care with c/o last night he felt as if some something burst into the right lower part of his abdomen. state he felt nauseous at that time but not feeling that anymore Medical / Surgical History (Last Reviewed 10/22/24 @ 14:54 by Amberly Guillaume MD) Disease of pericardium (03/29/07) Unspecified disease of pericardium (03/29/07) (Last Reviewed 10/22/24 @ 14:54 by Amberly Guillaume MD) Hx of left cataract extraction History of surgery of liver Hx of cholecystectomy Colonoscopy - MAC (03/26/16) Most Recent Vital Signs Temperature 36.9 C 11/14/24 19:03 Temperature Source Oral 11/14/24 19:03 Pulse 94 H 11/14/24 19:03 Respiratory Rate 16 11/14/24 19:03 Blood Pressure 101/74 11/14/24 19:03 Blood Pressure Mean 83 11/14/24 19:03 Blood Pressure Position Sitting 11/14/24 17:12 Pulse Oximetry 94 11/14/24 19:03 Oxygen Delivery Method Room Air 11/14/24 19:03 Oxygen Flow Rate 0 11/14/24 19:03 Pain Level 2 11/14/24 17:12 Allergies aspirin Allergy (Unknown, Verified 11/14/24 16:39) Unknown bothers my stomach Sulfa (Sulfonamide Antibiotics) Adverse Reaction (Intermediate, Verified 11/14/24 16:39) NAUSEA/VOMITING Salicylates * (Salicylates *RETIRED-10/29/15) Adverse Reaction (Mild, Verified 11/14/24 16:39) GI UPSET Active Medications Generic Name Dose Route Start Last Admin Trade Name Freq PRN Reason Stop Dose Admin Sodium Chloride 1,000 mls @ 125 mls/hr 11/14/24 18:45 11/14/24 18:50 Saline 1000ml Bag IV 125 mls/hr INFUSION BRIANDA Administration Iohexol 100 ml 11/14/24 18:00 11/14/24 17:53 Omnipaque 350 Mg/Ml 100 Ml Btl IJ 12/14/24 23:59 85 ml DIRECTED BRIANDA Administration Sodium Chloride 50 ml 11/14/24 18:00 11/14/24 17:52 Normal Saline - Diluent 50 Ml Vial IJ 50 ml .FOR DI USE BRIANDA Administration IV IV Catheter Type [Antecubital] Peripheral IV IV Catheter Gauge [Antecubital 18 ] Diet Orders Category Date Time Status npo [Nothing Per Oral] [DIET] Nutrition 11/14/24 18:36 Active Diagnostics 11/14/24 11/14/24 Range/Units 17:45 17:05 WBC 7.60 (4.4-10.8) 10^3/uL RBC 2.31 L (4.36-5.78) 10^6/uL Hgb 8.3 L (13.5-17.5) g/dL Hct 25.2 L (40.0-50.0) % MCV 109 H (80-95) fL MCH 35.9 H (27.0-33.0) pg MCHC 32.9 (32.0-36.0) % RDW 14.0 (11.8-14.1) % Plt Count 228 (130-400) 10^3/uL MPV 9.4 (8.0-11.0) fL Immature Gran % 0.5 % Neutrophils % 79.9 % Lymphocytes % 13.6 % Monocytes % 4.9 % Eosinophils % 0.8 % Basophils % 0.3 % Nucleated RBC % 0.0 (0.0-0.3) % Absolute Neutrophils 6.08 (1.2-6.7) 10^3/uL Absolute Lymphocytes 1.03 L (1.2-3.4) 10^3/uL Absolute Monocytes 0.37 (0.1-0.8) 10^3/uL Absolute Eosinophils 0.06 (0.0-0.7) 10^3/uL Absolute Basophils 0.02 (0.0-0.2) 10^3/uL RBC Morphology See Below Macrocytosis 2+ VBG Lactate 0.9 (<or=2.0) mmol/L Sodium 131 L (136-145) mmol/L Potassium 4.5 (3.5-5.1) mmol/L Chloride 99 (98-107) mmol/L Carbon Dioxide 26.8 (21.0-32.0) mmol/L Anion Gap 5.2 (3-11) mmol/L BUN 16 (7-18) mg/dL Creatinine 0.9 (0.70-1.30) mg/dL Est GFR (CKD-EPI 2020) 84.74 (mL/min/1.73m2) Glucose 118 H (74-106) mg/dL Calcium 8.7 (8.5-10.1) mg/dL Magnesium 1.7 L (1.8-2.4) mg/dL Total Bilirubin 0.4 (0.2-1.0) mg/dL AST 19 (15-37) U/L ALT 18 (16-63) U/L Alkaline Phosphatase 76 (46-116) U/L Total Protein 11.6 H (6.4-8.2) g/dL Albumin 2.5 L (3.4-5.0) g/dL Lipase 47 (<78) U/L Urine Color Yellow (Yellow) Urine Clarity Clear (Clear) Urine pH 7.0 (5-8) Ur Specific [place] 1.015 (1.005-1.025) Urine Protein Trace (Neg-Trace) mg/dL Urine Ketones Negative (Negative) mg/dL Urine Blood Moderate H (Negative) Urine Nitrite Negative (Negative) Urine Bilirubin Negative (Negative) Urine Urobilinogen 0.2 (Up to 0.2) mg/dL Ur Leukocyte Esterase Negative (Negative) Urine RBC 20-50 H (0-2) HPF Urine WBC 0-2 (0-5) HPF Ur Epithelial Cells Rare (Negative) HPF Urine Crystals Negative (Negative) HPF Urine Bacteria Rare (Negative) HPF Urine Casts Negative (Negative) LPF Urine Mucus Moderate (Negative) Ur Culture Indicated? No Urine Glucose Negative (Negative) mg/dL Intake and Output - 24 Hour Total 11/14/24 16:31 thru 11/14/24 16:34 Weight 67.812 kg Falls Risk Assessment History of Falls No History 11/14/24 17:12 Contributing Factors No Factors 11/14/24 17:12 Ambulatory Aids Independent 11/14/24 17:12 Tubes/Lines None 11/14/24 17:12 Gait Evaluation W/no contributing factors 11/14/24 17:12 Cognition No cognitive impairment 11/14/24 17:12 Fall Total Score 10 11/14/24 17:12 Level of Risk Standard/Low Risk 11/14/24 17:12 v v v v v v v v v Sending and/or Receiving Nurses: Please use comment section below to note any information pertinent to the patient hand-off not included above. Information / Comments: No further questions. Report received from: KOFFI Rosa
[2024-11-14 20:50] VITALS: BP 117/81; PULSE 107; RESP 16; TEMP 36.6; O2SAT 95
--- NOTE | 2024-11-14 21:53 | HPE_ITS ---
Date of service: 11/14/24 Time of Service: 21:53 Assessment and Plan Assessment and plan (1) Acute appendicitis: Status: Acute Assessment and plan: 84-year-old male with early acute appendicitis based on CT scan. No evidence of perforation or abscess, however inflammation involves the base of the appendix and the cecum - Due to cardiac history, needs internal medicine risk stratification - If high risk, may proceed with medical management of appendicitis since no appendicolith is present - IV antibiotics - Multimodal pain control - Clear liquid diet tonight - N.p.o. in the morning (2) Aortic stenosis: Status: Chronic Assessment and plan: Severe per outpatient record. Multiple full radiographic artifacts within the heart on CT imaging as well, although patient denies prior cardiac cath/stents/pacemaker - Internal medicine assistance appreciated - Will consult anesthesia for preoperative eval as well (3) Ulcerative colitis: Status: Chronic (4) Prediabetes: Status: Acute Assessment and plan: Blood sugar 118 upon presentation to the emergency department - Goal less than 200 (5) Macrocytic anemia: Status: Acute Assessment and plan: Increasing anemia over the last several years with elevated MCV. - Check B12 and folate - Replace as needed History of Present Illness History of Present Illness Chief Complaint: RLQ abdominal pain Narrative: 84-year-old male presenting with right lower quadrant abdominal pain that woke him from sleep last night. Patient states he heard a pop at the time with the pain started. No radiation or migration. Denies nausea, vomiting, fevers, chills. Ate a large lunch without issues Reported that he was healthy to the emergency room physician. Further chart review shows severe aortic stenosis, ulcerative colitis, prediabetes not on medications. Heart with artifact consistent with prior intervention on CT scan but patient denies catheterization or stent placement. No evidence of pacemaker Review of Systems Constitutional Constitutional: Denies anorexia, Denies chills, Denies fever(s), Denies poor appetite and Denies weakness ENT Ears, Nose, Mouth, and Throat: Denies dizziness and Denies disequilibrium Cardiovascular Cardiovascular: Denies chest pain, Denies chest pain at rest, Denies chest pain with activity, Denies edema, Denies irregular heart rhythm, Denies leg edema, Denies dyspnea, Denies dyspnea on exertion and Denies orthopnea Respiratory Respiratory: Denies cough, Denies dyspnea and Denies dyspnea on exertion Gastrointestinal Gastrointestinal: Reports abdominal pain (Right lower quadrant), Denies belching, Denies bloating, Denies heartburn, Reports nausea (With initial onset of pain, but none since. No vomiting) and Denies vomiting Neurologic Neurologic: Denies confusion, Denies dizziness, Denies disequilibrium and Denies weakness Psychiatric Psychiatric: Denies confusion Hematologic/Lymphatic Hematologic/Lymphatic: Denies easy bleeding and Denies easy bruising PFSH All Active Problems Macrocytic anemia (Acute) Acute appendicitis (Acute) Epistaxis (Acute) Acute exacerbation of chronic low back pain (Acute) Epistaxis (Acute) Acute anterior epistaxis (Acute) Allergic rhinitis (Acute) Dermatitis (Acute) Wart of hand (Acute) Cough (Acute) Ulcerative colitis (Chronic 03/29/07) Prediabetes (Acute) Aortic stenosis (Chronic) Medical History Disease of pericardium (03/29/07) Unspecified disease of pericardium (03/29/07) Surgical History Hx of left cataract extraction both eyes History of surgery of liver Hx of cholecystectomy Colonoscopy - MAC (03/26/16) Family History Mother Cancer Father No problems noted. Sister No problems noted. Brother Cancer Sister No problems noted. Sister No problems noted. Brother No problems noted. Brother No problems noted. Son No problems noted. Daughter Diabetes Social History Smoking/Tobacco Use Status: Never Second Hand Exposure: Yes Smoking risk assessment performed?: Yes Alcohol Intake: former Drug use: Never Substance use type: does not use Caregiver/Support person: No Household members: spouse Housing: house Communication Needs: None Do you need help understanding health information?: Never Pets and animals: Yes Pets and animals: cat(s) Sexually active: No Do you think of yourself as: straight/heterosexual Current gender identity: male What is your relationship status?: How often do you talk on the phone with friends or family?: decline to answer How often do you get together with friends or relatives?: decline to answer How often do you attend sabianism or pentecostalism services?: decline to answer Do you belong to any clubs or organized social groups?: decline to answer Panel score (0-1 are the most socially isolated patients): 1 What type of physical activity do you participate in: other Details: Physical work Mary Beth/Anglican: Islam Special mary beth needs: No Seatbelt use: always Helmet use: No Drive intox or ride w/intox regional tanker 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 driver: No Do you feel safe at home: Yes Do you feel safe in your relationship?: Yes Meds Allergies and Home Medications Allergies Allergy/AdvReac Type Severity Reaction Status Date / Time aspirin Allergy Unknown Unknown Verified 11/14/24 16:39 Sulfa (Sulfonamide AdvReac Intermediate NAUSEA/VOMI Verified 11/14/24 16:39 Antibiotics) TING Salicylates * (Salicylates AdvReac Mild GI UPSET Verified 11/14/24 16:39 *RETIRED-10/29/15) Home Medications ?Medication ?Instructions ?Recorded ?Confirmed ?Type loperamide 2 mg-simethicone 125 mg 2 tab PO DAILY 08/1711/14/24 History tablet (Imodium Multi-Symptom Relief) ascorbic acid (vitamin C) 1,000 mg 1,000 mg PO DAILY 0 06/01/20 11/14/24 History tablet,extended release (Vitamin C ER) ginkgo biloba 40 mg tablet 120 mg PO DAILY 06/01/20 History mupirocin 2 % topical ointment 1 applic topical TID #2 2 grams 11/19/20 11/14/24 Rx mometasone 50 mcg/actuation nasal 2 spray intranasal D AILY #17 grams 04/28/23 11/14/24 Rx spray triamcinolone acetonide 0.1 % 1 applic topical DAILY # 80 grams 04/28/23 11/14/24 Rx topical cream lidocaine 4 % topical patch 1 patch topical DAILY PRN #15 ea 10/22/24 11/14/24 Rx Exam Const General: cooperative, comfortable and no acute distress Eyes Sclera: sclerae normal Pupils: PERRL EOM: EOM intact bilaterally Chest Chest: normal inspection of the chest and normal palpation of entire chest wall Resp Effort & Inspection: normal respiratory effort and no cough Cardio Rate: regular rate Rhythm: regular rhythm GI Inspection: scar (Well-healed laparoscopic beatriz trocar scars) Palpation: soft, no guarding and tender in the RLQ and at McBurney's point; Rovsing's sign negative Skin General skin exam: turgor normal and pallor Neuro General: patient alert, patient awake and patient oriented x3 Cognition: normal cognition Speech: speech normal Results Imaging Abdomen CT scan report/results: report reviewed and image reviewed (Dilation of appendix with thickening of the wall. Inflammation involving base of appendix and cecum) Labs 11/14/24 17:05 11/14/24 17:05 Labs: Laboratory Results - last 24 hr 11/14/24 11/14/24 17:05 17:45 WBC 7.60 RBC 2.31 L Hgb 8.3 L Hct 25.2 L MCV 109 H MCH 35.9 H MCHC 32.9 RDW 14.0 Plt Count 228 MPV 9.4 Immature Gran % 0.5 Neutrophils % 79.9 Lymphocytes % 13.6 Monocytes % 4.9 Eosinophils % 0.8 Basophils % 0.3 Nucleated RBC % 0.0 Absolute Neutrophils 6.08 Absolute Lymphocytes 1.03 L Absolute Monocytes 0.37 Absolute Eosinophils 0.06 Absolute Basophils 0.02 RBC Morphology See Below Macrocytosis 2+ VBG Lactate 0.9 Sodium 131 L Potassium 4.5 Chloride 99 Carbon Dioxide 26.8 Anion Gap 5.2 BUN 16 Creatinine 0.9 Est GFR (CKD-EPI 2020) 84.74 Glucose 118 H Calcium 8.7 Magnesium 1.7 L Total Bilirubin 0.4 AST 19 ALT 18 Alkaline Phosphatase 76 Total Protein 11.6 H Albumin 2.5 L Lipase 47 Urine Color Yellow Urine Clarity Clear Urine pH 7.0 Ur Specific [place] 1.015 Urine Protein Trace Urine Ketones Negative Urine Blood Moderate H Urine Nitrite Negative Urine Bilirubin Negative Urine Urobilinogen 0.2 Ur Leukocyte Esterase Negative Urine RBC 20-50 H Urine WBC 0-2 Ur Epithelial Cells Rare Urine Crystals Negative Urine Bacteria Rare Urine Casts Negative Urine Mucus Moderate Ur Culture Indicated? No Urine Glucose Negative Last Vital Signs Temp 36.6 C 11/14/24 20:50 Pulse 107 H 11/14/24 20:50 Resp 16 11/14/24 20:50 BP 117/81 11/14/24 20:50 Pulse Ox 95 11/14/24 20:50 Time Spent Time spent with Patient: 55-74 minutes Time was spent: preparing to see the patient(eg.review tests), obtaining and/or reviewing separately otained hiistory, ordering medications,tests, procedures, referring, communicating with other health insurance healthcare representative, indepentently interpreting results, counseling the patient and care coordination
--- NOTE | 2024-11-15 | DI.US_ITS ---
APPROVED REPORT EXAM: Comprehensive 2D, Doppler, and color-flow Echocardiogram Patient Location: In-Patient Room/Bed: [address] Operator: Paola Waller RDCS (AE) Indications: H/O Severe Other Information Study Quality: Adequate. Technically limited study due to body habitus. Conclusion Concentric left ventricular hypertrophy. Normal left ventricular chamber size. EF is 55 to 60%. There are no segmental wall motion abnormalities Right ventricle is not well-visualized Both atria are dilated There is calcification of the aortic valve. The aortic valve is probably trileaflet. There is severe/critical aortic stenosis with a peak gradient of 116, mean 79 mmHg. Calculated aortic valve area 0.6 cm??. There is trace aortic regurgitation Calcified mitral leaflets and annulus. Moderate mitral stenosis and regurgitation Estimated right ventricular systolic pressure is 73 mmHg Ascending aorta measures 4.1 cm Wall motion Left Ventricle The left ventricle is normal size. The left ventricular systolic function is normal. The left ventricular ejection fraction is within the normal range. Moderate concentric left ventricular hypertrophy. There is normal LV segmental wall motion. There is no ventricular septal defect visualized. LVEF is 57%. Right Ventricle Right ventricle is not well visualized. Right ventricular systolic function could not be assessed. Atria Left atrium is severely dilated. Right atrium is severely dilated. The interatrial septum is intact with no evidence for an atrial septal defect. Aortic Valve Aortic valve is calcified. Aortic valve is probably trileaflet. Severe aortic stenosis. Peak aortic valve gradient is115.88_mmHg. Highest mean aortic valve gradient is 79.28_mmHg. Calculated HILDA by the continuity equation is .6cm2. Trace aortic regurgitation. Mitral Valve Mitral valve leaflets are calcified. Mitral valve leaflets have restricted excursion. Moderate mitral annular calcification. Moderate mitral stenosis. Moderate mitral regurgitation. Tricuspid Valve The tricuspid valve is normal in structure. There is no tricuspid valve stenosis. Moderate tricuspid regurgitation. The RVSP is 73.4_ mmHg. Pulmonic Valve The pulmonary valve is normal in structure. There is no pulmonic valvular stenosis. Trace pulmonic regurgitation. Great Vessels The aortic root is normal in size. The ascending aorta is moderately dilated. Aortic arch is normal in caliber. IVC is normal in size and collapses >50% with inspiration. Pericardium There is no pericardial effusion. 2D Dimensions IVSD d PLAX 1.44 cm M: 0.6-1.2 Ao Root d 3.67 cm M: 3.1 - 3.7 LVPW d PLAX 1.40 cm M: 0.6 - 1.2 Ao Asc Diam d 4.10 cm M: 2.6 - 3.4 LVID d PLAX 4.36 cm M: 4.2 - 5.8 LVDs 3.07 cm M: 2.5 - 4.0 LV EF Teichholz 57.0 % FS 29.68 % LV EDV (Teich) 85.8 mL LV ESV (Teich) 36.9 mL M-Mode TAPSE 1.45 cm (M/F) >1.7 Auto EF LV EDV A4C 127.6 mL LV EDV A2C 125.4 mL LV EDV BP 130.2 mL LV ESV A4C 61.5 mL LV ESV A2C 58.8 mL LV ESV BP 61.1 mL LVEF(%) A4C 51.8 % LVEF(%) A2C 53.1 % LVEF(%) BP 53.1 % LV SV A4C 66.1 ml LV SV A2C 66.6 ml LV SV BP 69.1 ml LV CO A4C 5.4 L/min LV CO A2C 5.4 L/min LV CO BP 5.4 L/min HR A4C 82.01 BPM HR A2C 80.90 BPM LV EDV Index (BP) LA Volume LA Length A4C 6.2 cm LA Length A2C 6.5 cm LA Area A4C s 32.20 cm2 LA Area A2C s 31.35 cm2 LA Vol A4C A-L 142.24 mL LA Vol A2C A-L 127.75 mL LA Vol Biplane A-L 138.5 mL LA Vol/BSA A4C A-L LA Vol/BSA A2C A-L LA Vol/BSA BP A-L 75.3 mL/m2 LA Vol A4C MOD 133.7 mL LA Vol A2C MOD 121.0 mL LA Vol BP MOD 130.2 mL RA Volume RA Area A4C 25.8 cm2 RA ESV A4C (A-L) 105.0mL RA Vol/BSA A4C A-L RA Length A4C 5.4 cm RA ESV A4C (MOD) 99.2mL LV Diastology MV E' medial 0.083 (>0.07 m/s) MV E Vmax 1.73 (0.4-1.3 m/s) MV E/E' MED 20.87 (<14) MV A Vmax 1.90 (0.4-1.3 m/s) MV E' lateral 0.058 (>0.1 m/s) E/A Ratio 0.9 MV E/E' LAT 29.74 (<14) MV E' Average 0.071 m/s MV E/E'(average) 24.53 Aortic Valve AoV Vmax 5.38 m/s LVOT Vmax 1.00 m/s AoV Peak Grad 107.5 mmHg LVOT Peak Grad 4.0 mmHg AoV Area (Vmax) 0.63 cm2 LVOT VTI 0.206 m AoV VTI 1.253 m LVOT Mean Grad 2.3 mmHg AoV Mean [place]. 4.28 m/s LVOT SV 69.83 mL AoV Mean Grad 79.3 mmHg LVOT Diam s 2.05 cm AoV Area (VTI) 0.56 cm2 AV Regurg Peak Gr. 115.88 mmHg Velocity Ratio 0.19 AR Decel [place] 3.0m/sec2 AR DT 1666 msec AR PHT 483 msec AR Vmax 4.98 m/s Mitral Valve MV DT 233 (160-240 msec) MR Vmax 6.16 m/s MV Vmax TIPS 1.92 m/s MR VTI 1.461 m MV Peak Grad 16.7 mmHg MR Peak Grad 151.8 mmHg MV Mean Grad 8.1 (<2mmHg) MR Mean Grad 100.1 mmHg MV PHT 82 msec MV Area PHT 1.50 cm2 MV VTI 0.450 m MV Area VTI 1.50 (4.0-6.0 cm2) Pulmonary Valve PV Vmax 1.76 (0.5-1.5 m/s) RVOT Vmax 0.66 m/s PV Peak Grad 12.4 mmHg RVOT Peak Gr. 1.8 mmHg PV Mean [place] 1.04 m/s RVOT VTI 0.136 m PV Mean Grad 5.3 mmHg RVOT Mean Gr. 0.8 mmHg Tricuspid Valve RA Pressure 3.00 mmHg TR Vmax 4.19 m/s TV S' 0.09 m/s TR Peak Grad 70.3 mmHg RVSP (TR) 73.4 mmHg
[2024-11-15] MEDS: PIPERACILLIN/TAZO 3.375 GM in Normal Saline 50 ML IVPB ×4 (00:34→18:39)
[2024-11-15 04:21] VITALS: BP 119/85; PULSE 88; RESP 18; TEMP 36.5; O2SAT 95
[2024-11-15 07:17] LABS: Abs Immature Grans 0.04 10^3/uL (0.0-0.06); HCT 22.6 % (40.0-50.0); HGB 7.5 g/dL (13.5-17.5); Immature Grans % 0.7 %; MCH 36.2 pg (27.0-33.0); MCHC 33.2 % (32.0-36.0); MCV 109 fL (80-95); MPV 10.0 fL (8.0-11.0); Platelet Count 201 10^3/uL (130-400); RBC 2.07 10^6/uL (4.36-5.78); RDW 14.2 % (11.8-14.1); RDW-SD 55.7 fL; WBC 5.98 10^3/uL (4.4-10.8)
[2024-11-15 07:21] VITALS: BP 106/68; PULSE 80; RESP 18; TEMP 36.8; O2SAT 95
--- NOTE | 2024-11-15 07:31 | W.PM.PROGNOT ---
Date of Service Date of service: 11/15/24 Time of Service: 07:31 Assessment and Plan Assessment and plan (1) Acute appendicitis: Status: Acute Assessment and plan: 84-year-old male with severe aortic stenosis, multivalve regurg, pulmonary artery hypertension presenting with acute appendicitis based on exam and imaging. Vitals and white count normal, pain slightly improved - Evaluated by anesthesia and deemed to be high risk based on old echocardiogram. Beyond the capabilities of the center. Surgery canceled for today - Reviewed with patient and family the literature showing antibiotic management of acute appendicitis without appendicolith to be effective and safe - Continue IV antibiotics - Start clear liquid diet and advance as tolerated - Multimodal pain control - Internal medicine to take over as primary team (2) Aortic stenosis: Status: Chronic Assessment and plan: Primary cardiac care provided elsewhere. Old echo in our system shows aortic stenosis with multivalve regurg and elevated pulmonary artery pressure - Repeat echo -Follow-up internal medicine recommendations - Patient will require transfer for IR or surgical interventions with cardiac anesthesia if not clinically improving (3) Ulcerative colitis: Status: Chronic Assessment and plan: Mild case. No recent colonoscopy. Manages diarrhea symptoms with medications Restart home medications - Subjective Subjective Interval history since last seen: Reviewed patient with anesthesia. Severe aortic stenosis with elevated PA pressures and multivalve regurgitation. They are not comfortable with performing his anesthesia at this center. Vitals and WBC normal this AM. Pain subjectively improved per patient Exam Const General: cooperative, comfortable and no acute distress Eyes Sclera: sclerae normal Pupils: PERRL EOM: EOM intact bilaterally Resp Effort & Inspection: normal respiratory effort and no cough Cardio Rate: regular rate GI Inspection: normal to inspection and non-distended Palpation: no guarding and tender in the RLQ Skin General skin exam: turgor normal, no ecchymosis and no pallor Neuro General: patient alert, patient awake and patient oriented x3 Cognition: normal cognition Speech: speech normal Objective Last Vital Signs Temp 36.8 C 11/15/24 07:21 Pulse 80 11/15/24 07:21 Resp 18 11/15/24 07:21 BP 106/68 11/15/24 07:21 Pulse Ox 95 11/15/24 07:21 Laboratory Results - last 24 hr 11/14/24 11/14/24 17:05 17:45 WBC 7.60 RBC 2.31 L Hgb 8.3 L Hct 25.2 L MCV 109 H MCH 35.9 H MCHC 32.9 RDW 14.0 Plt Count 228 MPV 9.4 Immature Gran % 0.5 Neutrophils % 79.9 Lymphocytes % 13.6 Monocytes % 4.9 Eosinophils % 0.8 Basophils % 0.3 Nucleated RBC % 0.0 Absolute Neutrophils 6.08 Absolute Lymphocytes 1.03 L Absolute Monocytes 0.37 Absolute Eosinophils 0.06 Absolute Basophils 0.02 RBC Morphology See Below Macrocytosis 2+ VBG Lactate 0.9 Sodium 131 L Potassium 4.5 Chloride 99 Carbon Dioxide 26.8 Anion Gap 5.2 BUN 16 Creatinine 0.9 Est GFR (CKD-EPI 2020) 84.74 Glucose 118 H Calcium 8.7 Magnesium 1.7 L Total Bilirubin 0.4 AST 19 ALT 18 Alkaline Phosphatase 76 Total Protein 11.6 H Albumin 2.5 L Lipase 47 Urine Color Yellow Urine Clarity Clear Urine pH 7.0 Ur Specific [place] 1.015 Urine Protein Trace Urine Ketones Negative Urine Blood Moderate H Urine Nitrite Negative Urine Bilirubin Negative Urine Urobilinogen 0.2 Ur Leukocyte Esterase Negative Urine RBC 20-50 H Urine WBC 0-2 Ur Epithelial Cells Rare Urine Crystals Negative Urine Bacteria Rare Urine Casts Negative Urine Mucus Moderate Ur Culture Indicated? No Urine Glucose Negative Time Spent with Patient Time Spent with Patient: 25-34 minutes Time was spent: preparing to see the patient(eg.review tests), ordering medications,tests, procedures, referring, communicating with other health animal care technician, indepentently interpreting results, counseling the patient and care coordination
[2024-11-15 07:38] LABS: INR 1.1 (0.9-1.1); PTT Activated 22.5 sec (20.6-30.2); Prothrombin Time 11.3 sec (9.1-11.1)
--- NOTE | 2024-11-15 07:43 | ANES.CON_ITS ---
General Date of Service Date of Service: 11/15/24 Reason for Consult Requesting Provider: Bridger Dunn How Consult Conducted:: Chart Review Reason for Consult:: Severe Aortic Stenosis and potential laparoscopic appendectomy Consult Recommendation after Review:: Patient appears to still have severe aortic stenosis and multivalvular dysfunction. Our last obtainable (through [employer]) ECHO showed this and his most recent PCP visit confirmed the diagnosis from a 09/2024 ECHO that is not in our system. I discussed the case and chart review with Kain Woodall CRNA and he concurs; the patient is not an elective candidate for anesthesia at this facility. Height: 5 ft 10 in Weight: 67.81 kg Body Mass Index (BMI): 21.4 Meds Allergies and Home Medications Allergies Allergy/AdvReac Type Severity Reaction Status Date / Time aspirin Allergy Unknown Unknown Verified 11/14/24 16:39 Sulfa (Sulfonamide AdvReac Intermediate NAUSEA/VOMI Verified 11/14/24 16:39 Antibiotics) TING Salicylates * (Salicylates AdvReac Mild GI UPSET Verified 11/14/24 16:39 *RETIRED-10/29/15) Home Medication ?Medication ?Instructions ?Recorded loperamide 2 mg-simethicone 125 mg 2 tab PO DAILY 08/17 tablet (Imodium Multi-Symptom Relief) ascorbic acid (vitamin C) 1,000 mg 1,000 mg PO DAILY 0 06/01/20 tablet,extended release (Vitamin C ER) ginkgo biloba 40 mg tablet 120 mg PO DAILY 06/01/20 mupirocin 2 % topical ointment 1 applic topical TID #2 2 grams 11/19/20 mometasone 50 mcg/actuation nasal 2 spray intranasal D AILY #17 grams 04/28/23 spray triamcinolone acetonide 0.1 % 1 applic topical DAILY # 80 grams 04/28/23 topical cream lidocaine 4 % topical patch 1 patch topical DAILY PRN #15 ea 10/22/24 Current Visit Medications: Current Medications Generic Name Dose Route Start Last Admin Trade Name Freq PRN Reason Stop Dose Admin Acetaminophen 650 mg 11/14/24 22:30 11/14/24 23:15 Acetaminophen 325 Mg Tab PO Not Given QID BRIANDA Enoxaparin Sodium 40 mg 11/15/24 10:00 Enoxaparin 40 Mg/0.4 Ml Syr SC Q24H BRIANDA Hydromorphone HCl 0.2 mg 11/14/24 22:28 Hydromorphone 2 Mg/Ml Syr IV Q2H PRN PRN Piperacillin Sod/Tazobactam 50 mls @ 100 mls/hr 11/15/24 00:00 11/15/24 05:58 Sod 3.375 gm/ Sodium Chloride IVPB 100 mls/hr Q6H BRIANDA Administration IV Miscellaneous Supplies 1 each 11/14/24 22:15 Iv Access IV DIRECTED BRIANDA Ibuprofen 600 mg 11/15/24 00:00 11/15/24 06:05 Ibuprofen 600 Mg Tab PO Not Given Q6H BRIANDA Iohexol 100 ml 11/14/24 18:00 11/14/24 17:53 Omnipaque 350 Mg/Ml 100 Ml Btl IJ 12/14/24 23:59 85 ml DIRECTED BRIANDA Administration Ondansetron HCl 4 mg 11/14/24 22:10 Ondansetron 4 Mg/2 Ml Vial IVP Q4H PRN PRN Oxycodone HCl 5 mg 11/14/24 22:10 Oxycodone 5 Mg Tab PO Q4H PRN PRN Oxycodone HCl 10 mg 11/14/24 22:10 Oxycodone 10 Mg Tab PO Q4H PRN PRN Sodium Chloride 0 ml 11/14/24 22:10 Normal Saline Flush 10 Ml Syr IVP PRN PRN Sodium Chloride 0 ml 11/15/24 08:30 Normal Saline Flush 10 Ml Syr IVP BID BRIANDA Sodium Chloride 0 ml 11/14/24 22:10 Normal Saline 10 Ml Vial IJ DIRECTED PRN PFSH Active Problems Active Problems: Problem Status Onset Code Macrocytic anemia Acute D53.9 Acute appendicitis Acute K35.80 Epistaxis Acute R04.0 Acute exacerbation of chronic low back pain Acute M54.50, G89.29 Epistaxis Acute R04.0 Acute anterior epistaxis Acute R04.0 Allergic rhinitis Acute J30.9 Dermatitis Acute L30.9 Wart of hand Acute B07.9 Cough Acute R05.9 Ulcerative colitis Chronic 03/29/07 K51.90 Prediabetes Acute R73.03 Aortic stenosis Chronic I35.0 Medical History Medical History Disease of pericardium (11/26/07) Unspecified disease of pericardium (03/29/07) Surgical History Surgical History Hx of left cataract extraction both eyes History of surgery of liver Hx of cholecystectomy Colonoscopy - MAC (03/26/16) Tobacco Smoking/Tobacco Use Status: Never Second hand exposure: Yes Alcohol Alcohol Intake: former Substance Use Substance use: Never Substance use type: does not use Vital Signs & Lab Results Vital Signs Most Recent Vital Signs: Most Recent Vital Signs Temp Pulse Resp BP Pulse Ox 36.8 C 80 18 106/68 95 11/15/24 07:21 11/15/24 07:21 11/15/24 07:21 11/15/24 07:21 11/15/24 07:21 Lab Results 11/14/24 17:05 11/14/24 17:05 Complete Blood Count: 2 WBC, (4.4-10.8) 7.60 10^3/uL 11/14/24, 17:05 RBC, (4.36-5.78) 2.31 10^6/uL L 11/14/24, 17:05 Hgb, (13.5-17.5) 8.3 g/dL L 11/14/24, 17:05 Hct, (40.0-50.0) 25.2 % L 11/14/24, 17:05 Plt Count, (130-400) 228 10^3/uL 11/14/24, 17:05 VBG Lactate, (<or=2.0) 0.9 mmol/L 11/14/24, 17:05 Complete Metabolic Panel: 2 Sodium, (136-145) 131 mmol/L L 11/14/24, 17:05 Potassium, (3.5-5.1) 4.5 mmol/L 11/14/24, 17:05 Chloride, (98-107) 99 mmol/L 11/14/24, 17:05 Carbon Dioxide, (21.0-32.0) 26.8 mmol/L 11/14/24, 17 :05 BUN, (7-18) 16 mg/dL 11/14/24, 17:05 Creatinine, (0.70-1.30) 0.9 mg/dL 11/14/24, 17:05 Est GFR (CKD-EPI 2020), (mL/min/1.73m2) 84.74 11/14/24, 17:05 Magnesium, (1.8-2.4) 1.7 mg/dL L 11/14/24, 17:05 Calcium, (8.5-10.1) 8.7 mg/dL 11/14/24, 17:05 Albumin, (3.4-5.0) 2.5 g/dL L 11/14/24, 17:05 Glucose, (74-106) 118 mg/dL H 11/14/24, 17:05 Hemoglobin A1c, (<5.7) 6.8 % H 11/09/24, 09:50 Liver Function Panel: 2 ALT, (16-63) 18 U/L 11/14/24, 17:05 AST, (15-37) 19 U/L 11/14/24, 17:05 Coagulation Panel: 2 INR, (0.9-1.1) 1.1 Today, 06:40 PT, (9.1-11.1) 11.3 sec H Today, 06:40 APTT, (20.6-30.2) 22.5 sec Today, 06:40 Pancreas Panel: 2 Lipase, (<78) 47 U/L 11/14/24, 17:05
[2024-11-15 07:47] VITALS: BMI 21.4
[2024-11-15 07:55] LABS: Macrocytosis 2+
[2024-11-15 07:56] LABS: Anisocytosis 1+
[2024-11-15 07:59] LABS: Anion Gap 4.4 mmol/L (3-11); BUN 14 mg/dL (7-18); CO2 28.6 mmol/L (21.0-32.0); Calcium 8.6 mg/dL (8.5-10.1); Chloride 100 mmol/L (98-107); Estimated GFR 74.68 (mL/min/1.73m2); Glucose 111 mg/dL (74-106); Potassium 3.9 mmol/L (3.5-5.1); Sodium 133 mmol/L (136-145); Vitamin B12 226 pg/mL (193-986)
[2024-11-15 08:01] LABS: Folate > 20.0 ng/mL (8.6-20.0)
--- NOTE | 2024-11-15 08:52 | INITIAL_ITS ---
Date of service: 11/15/24 Time of Service: 08:52 Care Management Initial Assmt Initial Assessment Reason for Hospitalization: appendicitis Functional Status/Living Situation Patient Presentation: Grant was sitting up in bed when CM met with him. He was alert, oriented and easily engaged in conversation. Grant was admitted with acute appendicitis. He had abdominal pain and fever. Unfortunately, Grant has some issued with his heart, making him at high risk for anesthesia. The decision has been made to treat him medically. If his condition deteriorates, he will be transferred to a tertiary care center for surgery. Grant lives in [place] with his Barbara. They have a blended family with 5 children and many, many grandchildren and great grandchildren. 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 Grant is independent at baseline and does not receive any community services. Grant shared that he still jama and does sugaring and has taught his granddaughter how to do both. Town of Residence: [place] Resides with: Spouse ( Barbara) Natural Supports: family Employment Status: Retired Instrumental Activities of Daily Living (ADLs): Independent Medications Medication Management: No Issues/Barriers identified Physical Functioning/Mobility Assistive Device: none Advance Directives Advance Directives: Do you have an Advance Directive: Y , 09:19 AD On File at [facility]: Y 06/01/14, 13:01 Date Asked 10/22/10 06/02/14, 09:19 AD Date Reviewed 11/14/24 11/14/24, 16:33 COLST On File at [facility] COLST Date Scanned Code Status Resuscitation Status Full Code Portal Pt does not currently have a portal and education provided: Yes Insurance Coverage/Financial Issues Insurance: BC/BS Medicare Advantage Care Team Visit Care Team Role Provider Type Rosita Rodriguez NP Primary Care Provider NURSE PRACTITIONER Elena Vidal, LABELING ASSOCIATE Other Providers CERT REG NURSE SENIOR APPLICATIONS ANALYST Danny Barton, LABELING ASSOCIATE Other Providers CERT REG NURSE SENIOR APPLICATIONS ANALYST Hilary Valerio, LABELING ASSOCIATE Other Providers CERT REG NURSE SENIOR APPLICATIONS ANALYST Dayna Caal, LABELING ASSOCIATE Other Providers CERT REG NURSE SENIOR APPLICATIONS ANALYST Jorge Medrano, LABELING ASSOCIATE Other Providers CERT REG NURSE SENIOR APPLICATIONS ANALYST Ankur Nolan, YAMINI Other Providers CERT REG NURSE SENIOR APPLICATIONS ANALYST Luis Woodall CRNA Other Providers CERT REG NURSE SENIOR APPLICATIONS ANALYST Danny Iyer MD Emergency Provider MD QUAN STAFF PHYSICIAN Bridger Dunn, DO Admit Provider OSTEOPATHIC DOCTOR Attending Provider Other Providers Discharge Potential Discharge Needs: Surgical F/U Appt Anticipated Barriers to Discharge: None Identified Patient/Family Education Needs: Review discharge instructions, discuss Ask Me Three Transportation: Private vehicle Plan: Anticipate that Grant will be discharged home when medically cleared. He will follow up with his PCP, surgeon and plan of care and transport with family. CM will follow and continue to support discharge planning. Social Determinants of Health Screening Social Determinants of health last assessed in clinic: 11/15/24 Will the Patient Participate in the Screening?: Yes Do you worry about having a steady place to live?: no Problems where you live: no known problems In the past 12 months, have you had to go without electric, gas, oil or water in your home?: no 1. Within the past 12 months, we worried whether our food would run out before we got money to buy more.: Never true 2. Within the past 12 months, the food we bought just didn't last and we didn't have money to get more.: Never true Has lack of transportation kept you from medical appointments or from doing things needed for daily living?: no Has anyone in your life made you feel unsafe or unsupported?: no How hard is it for you to pay for the very basics like food, housing, medical care, and heating? Would you say it is:: Not hard at all Do you want help finding or keeping work or a job?: I do not need or want help If for any reason you need help with day-to-day activities such as bathing, preparing meals, shopping, managing finances, etc., do you get the help you need?: I need a lot more help How often do you feel lonely or isolated from those around you?: Never Do you speak a language other than Hebrew at home?: No Does the patient want assistance with any of the above?: No Health Related Social Needs Health related social needs: problems with daily activities (Z73.9) Health related social needs details: Patient does not have any problems with the items above. Patient lives with his in their own home and they're both independent. PFSH All Active Problems Macrocytic anemia (Acute) Acute appendicitis (Acute) Epistaxis (Acute) Acute exacerbation of chronic low back pain (Acute) Epistaxis (Acute) Acute anterior epistaxis (Acute) Allergic rhinitis (Acute) Dermatitis (Acute) Wart of hand (Acute) Cough (Acute) Ulcerative colitis (Chronic 03/29/07) Prediabetes (Acute) Aortic stenosis (Chronic) Medical History Disease of pericardium (03/29/07) Unspecified disease of pericardium (03/29/07) Surgical History Hx of left cataract extraction both eyes History of surgery of liver Hx of cholecystectomy Colonoscopy - MAC (03/26/16) Family History Mother Cancer Father No problems noted. Sister No problems noted. Brother Cancer Sister No problems noted. Sister No problems noted. Brother No problems noted. Brother No problems noted. Son No problems noted. Daughter Diabetes Social History Smoking/Tobacco Use Status: Never Second Hand Exposure: Yes Smoking risk assessment performed?: Yes Alcohol Intake: former Drug use: Never Substance use type: does not use Caregiver/Support person: No Household members: spouse Housing: house Communication Needs: None Do you need help understanding health information?: Never Pets and animals: Yes Pets and animals: cat(s) Sexually active: No Do you think of yourself as: straight/heterosexual Current gender identity: male What is your relationship status?: How often do you talk on the phone with friends or family?: decline to answer How often do you get together with friends or relatives?: decline to answer How often do you attend roman catholic or protestant services?: decline to answer Do you belong to any clubs or organized social groups?: decline to answer Panel score (0-1 are the most socially isolated patients): 1 What type of physical activity do you participate in: other Details: Physical work Mary [employer]: [employer] Special mary beth needs: No Seatbelt use: always Helmet use: No Drive intox or ride w/intox cross 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
[2024-11-15] MEDS: Normal Saline Flush 10 ML SYR IVP ×4 (10:25→22:04)
[2024-11-15 18:07] LABS: HCT 24.0 % (40.0-50.0); HGB 7.9 g/dL (13.5-17.5)
[2024-11-15 19:27] VITALS: BP 93/62; PULSE 79; RESP 18; TEMP 36.5; O2SAT 98
[2024-11-15] MEDS: Acetaminophen 325 MG TAB 650 MG PO (22:04)
[2024-11-16] MEDS: PIPERACILLIN/TAZO 3.375 GM in Normal Saline 50 ML IVPB ×3 (00:29→12:44)
[2024-11-16 07:15] LABS: Abs Immature Grans 0.01 10^3/uL (0.0-0.06); HCT 22.4 % (40.0-50.0); HGB 7.5 g/dL (13.5-17.5); Immature Grans % 0.2 %; MCH 36.6 pg (27.0-33.0); MCHC 33.5 % (32.0-36.0); MCV 109 fL (80-95); MPV 9.9 fL (8.0-11.0); Platelet Count 197 10^3/uL (130-400); RBC 2.05 10^6/uL (4.36-5.78); RDW 14.0 % (11.8-14.1); RDW-SD 55.8 fL; WBC 5.11 10^3/uL (4.4-10.8)
[2024-11-16 07:20] VITALS: BP 112/72; PULSE 77; RESP 20; TEMP 36.8; O2SAT 97
[2024-11-16 07:40] LABS: Anion Gap 7.2 mmol/L (3-11); BUN 15 mg/dL (7-18); CO2 26.8 mmol/L (21.0-32.0); Calcium 8.5 mg/dL (8.5-10.1); Chloride 100 mmol/L (98-107); Estimated GFR 74.68 (mL/min/1.73m2); Glucose 108 mg/dL (74-106); Magnesium 1.7 mg/dL (1.8-2.4); Potassium 3.8 mmol/L (3.5-5.1); Sodium 134 mmol/L (136-145)
--- NOTE | 2024-11-16 11:08 | CMDISCH_ITS ---
Date of service: 11/16/24 Time of Service: 11:08 LACE Index Scoring Tool Questions: Length of Stay (in days): 2 Was the patient admitted via the E.D.?: Yes E.D. Visits: 3 Answers: Total Score: 8 Risk of Readmission: Low Risk Care Management Discharge Plan Reason for Hospitalization: appendicitis Discharge Plan: Grant will be discharged home with no new services. He will follow up with his PCP, surgeon and plan of care and transport with family. Leonel barahona to discharge LASHAWN met with Grant and his Barbara to assist with the completion of Advanced Directives. The paperwork was done, witnessed and copies were made and distributed as appropriate. They will be scanned into their medical records and filed with the [place] AD Registry. Patient/Family Education Needs: Review discharge instructions, limitations, follow up plan and discuss Ask Me Three SDOH Health Related Social Needs: Health related social needs daily activities Health related social needs details Patient does not h ave any problems with the items above. Patient lives with his in their own home and they're both independent. Health related social needs details: Patient does not have any problems with the items above. Patient lives with his in their own home and they're both independent.
[2024-11-16] MEDS: Normal Saline Flush 10 ML SYR IVP (11:34)
--- NOTE | 2024-11-16 13:37 | PGE_ITS ---
Date of Service Date of service: 11/16/24 Time of Service: 07:45 Assessment and Plan Assessment and plan (1) Acute appendicitis: Status: Acute Assessment and plan: on antibiotics for management due to aortic stenosis precluding safe anesthesia and surgery. Improving clinically. Tolerating regular diet. Stable for discharge home on oral antibiotics to complete 10d total therapy. I recommend augmentin and flagyl. see me in office in 14 days for follow up. (2) Ulcerative colitis: Status: Chronic Assessment and plan: restart home limotil dose today. stable chronic medical problem. (3) Aortic stenosis: Status: Chronic Assessment and plan: precludes safe anesthesia and surgery. Stable chronic. Exam Narrative Exam Narrative: 84-year-old male with uncomplicated acute appendicitis. He has contraindications to safe surgery and anesthesia including aortic stenosis and other valvular heart disease, so he is undergoing antibiotic management of his appendicitis. Today he tells me he has no pain. The pain he came in with has resolved. He does not have any nausea. He is tolerating a regular diet. Objective Last Vital Signs Temp 98.2 F 11/16/24 07:20 Pulse 77 11/16/24 07:20 Resp 20 11/16/24 07:20 BP 112/72 11/16/24 07:20 Pulse Ox 97 11/16/24 07:20 Laboratory Results - last 24 hr 11/15/24 11/16/24 17:57 06:50 WBC 5.11 RBC 2.05 L Hgb 7.9 L 7.5 L Hct 24.0 L 22.4 L MCV 109 H MCH 36.6 H MCHC 33.5 RDW 14.0 Plt Count 197 MPV 9.9 Immature Gran % 0.2 Neutrophils % 76.9 Lymphocytes % 14.9 Monocytes % 5.3 Eosinophils % 2.3 Basophils % 0.4 Nucleated RBC % 0.0 Absolute Neutrophils 3.93 Absolute Lymphocytes 0.76 L Absolute Monocytes 0.27 Absolute Eosinophils 0.12 Absolute Basophils 0.02 Sodium 134 L Potassium 3.8 Chloride 100 Carbon Dioxide 26.8 Anion Gap 7.2 BUN 15 Creatinine 1.0 Est GFR (CKD-EPI 2020) 74.68 Glucose 108 H Calcium 8.5 Magnesium 1.7 L Patient is awake and in no acute distress. Extraocular muscles are intact normal respiratory effort. Moist mucous membranes The abdomen is soft and nondistended. There is no tenderness to palpation in the right lower quadrant. Negative Rovsing sign Time Spent with Patient Time Spent with Patient: <25 minutes Time was spent: preparing to see the patient(eg.review tests), ordering medications,tests, procedures, referring, communicating with other health healthcare financial analyst, counseling the patient and care coordination
--- NOTE | 2024-11-16 14:18 | W.PM.DS.N ---
Date of service: 11/16/24 Time of Service: 14:18 DS: Diagnosis Discharge Diagnosis (1) Acute appendicitis: Status: Acute (2) Ulcerative colitis: Status: Chronic (3) Aortic stenosis: Status: Chronic Discharge Plan Disposition Patient Disposition: Home Condition: Improving Discharge Details Reason For Visit: Appendicitis Admit Date/Time: 11/14/24 18:36 Admit Provider: Bridger Dunn Attending Provider: Bridger Dunn [facility] Course: This is an 84-year-old gentleman who presented to the ED on the for abdominal pain. While he was in the ED he was noted to have acute appendicitis. Patient was originally admitted to the general surgery service but considering his severe aortic stenosis I decision was made not to perform surgery here. Patient was to be treated with antibiotics and then get cleared by cardiology and/or have a procedure for his aortic stenosis and at then potential surgical intervention. I have placed a copy of the HPI as well as his echocardiogram and CT. I did discuss the case with on-call surgeon Dr Sinha who recommends 10 days of abx (augmentin and flagyl) and follow up in 14 days with surgery History of Present Illness Chief Complaint: RLQ abdominal pain Narrative: 84-year-old male presenting with right lower quadrant abdominal pain that woke him from sleep last night. Patient states he heard a pop at the time with the pain started. No radiation or migration. Denies nausea, vomiting, fevers, chills. Ate a large lunch without issues Reported that he was healthy to the emergency room physician. Further chart review shows severe aortic stenosis, ulcerative colitis, prediabetes not on medications. Heart with artifact consistent with prior intervention on CT scan but patient denies catheterization or stent placement. No evidence of pacemaker Assessment and plan (1) Acute appendicitis: Status: Acute Assessment and plan: 84-year-old male with early acute appendicitis based on CT scan. No evidence of perforation or abscess, however inflammation involves the base of the appendix and the cecum - Due to cardiac history, needs internal medicine risk stratification - If high risk, may proceed with medical management of appendicitis since no appendicolith is present - IV antibiotics - Multimodal pain control - Clear liquid diet tonight - N.p.o. in the morning (2) Aortic stenosis: Status: Chronic Assessment and plan: Severe per outpatient record. Multiple full radiographic artifacts within the heart on CT imaging as well, although patient denies prior cardiac cath/stents/pacemaker - Internal medicine assistance appreciated - Will consult anesthesia for preoperative eval as well (3) Ulcerative colitis: Status: Chronic (4) Prediabetes: Status: Acute Assessment and plan: Blood sugar 118 upon presentation to the emergency department - Goal less than 200 (5) Macrocytic anemia: Status: Acute Assessment and plan: Increasing anemia over the last several years with elevated MCV. - Check B12 and folate - Replace as needed EXAM: Comprehensive 2D, Doppler, and color-flow Echocardiogram Patient Location: In-Patient Room/Bed: [address] [employer] Sales Manager: Paola Waller RDCS (AE) Indications: H/O Severe Other Information Study Quality: Adequate. Technically limited study due to body habitus. Conclusion Concentric left ventricular hypertrophy. Normal left ventricular chamber size. EF is 55 to 60%. There are no segmental wall motion abnormalities Right ventricle is not well-visualized Both atria are dilated There is calcification of the aortic valve. The aortic valve is probably trileaflet. There is severe/critical aortic stenosis with a peak gradient of 116, mean 79 mmHg. Calculated aortic valve area 0.6 cm??. There is trace aortic regurgitation Calcified mitral leaflets and annulus. Moderate mitral stenosis and regurgitation Estimated right ventricular systolic pressure is 73 mmHg Ascending aorta measures 4.[address] Adb/pelvis MPRESSION: The main finding here is a acute appendicitis, as described above. There is also some edema of the cecal base. This may be secondary to the appendicitis or possibly causative. Recommendations for Follow Up Recommended tests to be ordered by follow up provider: IT IS IMPERATIVE THAT THE PT FOLLOWS UP WITH CARDIOLOGY SERVICE SOON POSSIBLE FOR CRITICAL AORTIC STENOSIS. Home Meds and New Rx's Prescriptions: New metronidazole 500 mg tablet 500 mg PO Q8H 10 Days Qty: 30 0RF amoxicillin-pot clavulanate [Augmentin] 500-125 mg tablet 1 tab PO BID 10 Days Qty: 20 0RF Continued triamcinolone acetonide 0.1 % cream 1 applic topical DAILY Qty: 80 0RF Rx Instructions: nightly for 2 weeks and then as needed mometasone 50 mcg/actuation spray,non-aerosol 2 spray intranasal DAILY Qty: 17 2RF Rx Instructions: administer into each nostril mupirocin 2 % ointment 1 applic topical TID Qty: 22 0RF loperamide-simethicone [Imodium Multi-Symptom Relief] 1 EACH tablet 2 tab PO DAILY Vitamin C 1,000 mg Tablet Extended Release 1,000 mg PO DAILY ginkgo biloba 40 mg Tablet 120 mg PO DAILY lidocaine 4 % adhesive patch,medicated 1 patch topical DAILY PRNQty: 15 0RF Discharge Instructions Referrals: Rebekah Sinha MD [ [facility] STAFF PHYSICIAN, Surgery] Referral Note: follow up in 14 days Rosita Rodriguez NP [Primary Care Provider, Medicine] Referral Note: follow up with pcp in -7. Recommend consultation to Cardiology lionel Activity:: Activity as Tolerated Equipment/Supplies:: No Equipment Needed Diet:: As Tolerated Discharge Orders Discharge Orders: Discharge Order (Routine); Ordered 11/16/24 Ordered By: Conner Hoffman DS: Summary Time Spent with Patient providing and/or coordinating discharge services: Greater than 30 minutes Status at Discharge Functional status at discharge: independent ambulation Overall status at discharge: patient is back to baseline Mental Status: mental status grossly normal Speech and Movement: speech and movement normal Mood: congruent mood Affect: normal affect Quality:SDOH Health Related Social Needs: Health related social needs daily activities Health related social needs details Patient does not have any problems with the items above. Patient lives with his in their own home and they're both independent. Health related social needs details: Patient does not have any problems with the items above. Patient lives with his in their own home and they're both independent. Exam Narrative Exam Narrative: NCAT MMM EOPI GENERALIZED TREMOR 4/6 TACOS CTAB NO AMU NO TTP IN ABD Psych Mental Status: mental status grossly normal Speech and Movement: speech and movement normal Mood: congruent mood Affect: normal affect DS: Data Vitals/I&O Vitals and I&O: Vital Signs Temperature 36.8 C 11/16/24 07:20 Temperature Source Tympanic 11/16/24 07:20 Pulse 77 11/16/24 07:20 Pulse Rhythm Regular 11/14/24 20:50 Respiratory Rate 20 11/16/24 07:20 Respiratory Effort Normal, Non-Labored 11/14/24 20:50 Respiratory Depth Normal 11/14/24 20:50 Blood Pressure 112/72 11/16/24 07:20 Blood Pressure Mean 85 11/16/24 07:20 Blood Pressure Position Sitting 11/14/24 17:12 Pulse Oximetry 97 11/16/24 07:20 Oxygen Delivery Method Room Air 11/16/24 07:20 Oxygen Flow Rate 0 11/16/24 07:20 Pain Level 0 11/16/24 11:44 Intake & Output 11/15/24 11/16/24 11/16/24 23:59 11:59 23:59 Intake Total 1100 / 1878.75 700 / 750 50 / 750 Balance 1100 / 1878.75 700 / 750 50 / 750 Intake: IV 100 / 878.75 100 / 150 50 / 150 Oral 1000 / 1000 600 / 600 Other: Urine Color Pale Urine Appearance Clear Urine Odor Normal Comment voiding independently Stool Size Large Stool Characteristics Soft Data Completed and Pending Labs on day of discharge: Labs from last 24 hours 11/16/24 11/15/24 06:50 17:57 WBC 5.11 RBC 2.05 L Hgb 7.5 L 7.9 L Hct 22.4 L 24.0 L MCV 109 H MCH 36.6 H MCHC 33.5 RDW 14.0 Plt Count 197 MPV 9.9 Immature Gran % 0.2 Neutrophils % 76.9 Lymphocytes % 14.9 Monocytes % 5.3 Eosinophils % 2.3 Basophils % 0.4 Nucleated RBC % 0.0 Absolute Neutrophils 3.93 Absolute Lymphocytes 0.76 L Absolute Monocytes 0.27 Absolute Eosinophils 0.12 Absolute Basophils 0.02 Sodium 134 L Potassium 3.8 Chloride 100 Carbon Dioxide 26.8 Anion Gap 7.2 BUN 15 Creatinine 1.0 Est GFR (CKD-EPI 2020) 74.68 Glucose 108 H Calcium 8.5 Magnesium 1.7 L PFSH All Active Problems Macrocytic anemia (Acute) Acute appendicitis (Acute) Epistaxis (Acute) Acute exacerbation of chronic low back pain (Acute) Epistaxis (Acute) Acute anterior epistaxis (Acute) Allergic rhinitis (Acute) Dermatitis (Acute) Wart of hand (Acute) Cough (Acute) Ulcerative colitis (Chronic 03/29/07) Prediabetes (Acute) Aortic stenosis (Chronic) Medical History Disease of pericardium (03/29/07) Unspecified disease of pericardium (03/29/07) Surgical History Hx of left cataract extraction both eyes History of surgery of liver Hx of cholecystectomy Colonoscopy - MAC (03/26/16) Family History Mother Cancer Father No problems noted. Sister No problems noted. Brother Cancer Sister No problems noted. Sister No problems noted. Brother No problems noted. Brother No problems noted. Son No problems noted. Daughter Diabetes Social History Smoking/Tobacco Use Status: Never Second Hand Exposure: Yes Smoking risk assessment performed?: Yes Alcohol Intake: former Drug use: Never Substance use type: does not use Caregiver/Support person: No Household members: spouse Housing: house Communication Needs: None Do you need help understanding health information?: Never Pets and animals: Yes Pets and animals: cat(s) Sexually active: No Do you think of yourself as: straight/heterosexual Current gender identity: male What is your relationship status?: How often do you talk on the phone with friends or family?: decline to answer How often do you get together with friends or relatives?: decline to answer How often do you attend latter-day or taoist services?: decline to answer Do you belong to any clubs or organized social groups?: decline to answer Panel score (0-1 are the most socially isolated patients): 1 What type of physical activity do you participate in: other Details: Physical work Mary Beth/Jainism: Yarsanism Special mary beth needs: No Seatbelt use: always Helmet use: No Drive intox or ride w/intox driver's education instructor: No Do you feel safe at home: Yes Do you feel safe in your relationship?: Yes Time Spent with Patient Time Spent with Patient: 45-69 minutes Time was spent: preparing to see the patient(eg.review tests), obtaining and/or reviewing separately otained hiistory, ordering medications,tests, procedures, referring, communicating with other health care team coordinator scheduler, indepentently interpreting results, counseling the patient and care coordination
== END 2024-11-16 14:48 | disposition home or self-care (01) | DRG 394 ==
LOC: ER 20:08 → MS 20:22
PROVIDERS: Admitting Provider Surgery; Emergency Provider Emergency Medicine; PCP Nurse Practitioner Family; Responsible Provider Nurse Practitioner Family; Visit Provider Surgery
DX: K35.80 Unspecified acute appendicitis (principal); K51.80 Other ulcerative colitis without complications; I35.0 Nonrheumatic aortic (valve) stenosis; R73.03 Prediabetes; D53.9 Nutritional anemia, unspecified; M54.50 Low back pain, unspecified; J30.9 Allergic rhinitis, unspecified; Z79.899 Other long term (current) drug therapy
CPT/HCPCS: 00123; 36415; 80048; 80053; 83690; 93306; 96365; 99222; 99231; 99232; 99285; 74177; 81003; 81015; 82607; 82746; 83605; 83735; 85014; 85018; 85025; 85610; 85730; 99239; J2543; J3490

== ENCOUNTER 2024-11-23 07:47 | Outpatient (CLI) | payer MEDICARE, SELFPAY ==
--- NOTE | 2024-11-23 07:45 | RT.EKG_ITS ---
APPROVED REPORT Exam: Resting ECG Reason for Exam: Patient Location: O HR:82 bpm ECG Measurements Heart Rate 82 AXIS ND 323 P 102 QRSd 104 QRS 13 QT 391 T -41 QTc 457 Conclusion Sinus rhythm...normal P axis, V-rate 50- 99 Prolonged ND interval...ND >220, V-rate 50- 90 Left ventricular hypertrophy...multiple voltage criteria Nonspecific T abnormalities, inferior leads...T <-0.10mV, II III aVF
== END 2024-11-23 07:48 | disposition home or self-care (01) ==
LOC: DI.CARD 07:48
PROVIDERS: PCP Nurse Practitioner Family; Visit Provider Registered Nurse
DX: I35.0 Nonrheumatic aortic (valve) stenosis (principal)
CPT/HCPCS: 93010

== ENCOUNTER → 2024-11-23 08:23 | Outpatient (BNVA) | payer MEDICARE, SELFPAY | PROVIDERS: PCP Nurse Practitioner Family; Referring Provider Nurse Practitioner Family; Visit Provider Registered Nurse | DX: I35.0 Nonrheumatic aortic (valve) stenosis (principal) | CPT/HCPCS: 99215; 93005 ==

== ENCOUNTER → 2024-11-30 13:49 | Outpatient (BNVA) | payer MEDICARE, SELFPAY | PROVIDERS: PCP Nurse Practitioner Family; Referring Provider Nurse Practitioner Family; Visit Provider Surgery | DX: K35.30 Acute appendicitis with localized peritonitis, without perforation or gangrene (principal) | CPT/HCPCS: 99213 ==